=== PATIENT | female | born 1965 | race Two or more races ===

== ENCOUNTER 2021-07-13 10:25 | Outpatient (REF) | payer MEDICAID, SELFPAY ==
--- NOTE | ~2021-07-13 | XR_ITS ---
EXAMINATION: XR CERVICAL SPINE CLINICAL INFORMATION: Paresthesia. COMPARISON: None TECHNIQUE: 6 views of the cervical spine, inclusive of flexion and extension views, were obtained. FINDINGS: No abnormal prevertebral soft tissue swelling is seen. There is loss of normal cervical spine lordosis. There is approximately 2 mm of anterior subluxation of C3 on C4. There is narrowing of the disc spaces C4 through C7 with marginal spurring present. No acute fracture is identified. There is spurring of the joints of Luschka seen to cause anterior neural foraminal encroachment at the C5-C6 and C6-C7 levels bilaterally as well as at the C4-C5 level on the left. XR/XR cervical spine 5V IMPRESSION: Cervical spondylosis most significant at C4 through C7 as described. Most significant neural foraminal encroachment is seen on the right at the C5-C6 and C6-C7 levels and on the left at the C4-C5 level.
== END 2021-07-13 10:26 | disposition home or self-care (01) ==
LOC: HO.XRAY 10:25
PROVIDERS: PCP Registered Nurse; Visit Provider Registered Nurse
DX: R20.2 Paresthesia of skin (principal)
CPT/HCPCS: 72050

== ENCOUNTER 2021-08-25 15:04 | Outpatient (REF) | payer MEDICAID, SELFPAY ==
--- NOTE | ~2021-08-25 | CT_ITS ---
EXAMINATION: CT HEAD WITHOUT CONTRAST CLINICAL INFORMATION: Stroke. COMPARISON: None available. TECHNIQUE: Contiguous axial imaging was performed from the skull base to vertex without intravenous administration of contrast. This CT examination was performed using dose optimization techniques as appropriate, variously including the following: *Automated exposure control. *Adjustment of mA and/or kV according to patient size (this includes techniques or standardized protocols for targeted exams where dose is matched to indication/reason for exam; i.e. extremities or head). *Use of iterative reconstruction technique. DLP: 811 mGy-cm FINDINGS: There is no evidence of acute intracranial hemorrhage or edematous territorial infarction. There is no abnormal attenuation within the brain parenchyma. Mckeon-white matter differentiation is preserved. Proportional prominence of the ventricles and sulcal spaces. No evidence for obstructive hydrocephalus. No abnormal mass effect or midline shift. No extra-axial fluid collections. Calcific atherosclerotic disease of the intracranial internal carotid arteries. No hyperdense vessel sign. No acute soft tissue or osseous abnormalities. Mild mucosal thickening of the paranasal sinuses. Moderate rightward nasal septal deviation with spurring. The mastoid air cells and middle ear cavities are clear. Mild degenerative arthropathy of the temporal mandibular joints. CT/CT head/brain wo con IMPRESSION: No evidence of acute intracranial hemorrhage or edematous territorial infarction.
== END 2021-08-25 15:05 | disposition home or self-care (01) ==
LOC: HO.CT 15:04
PROVIDERS: PCP Registered Nurse; Visit Provider Registered Nurse
DX: Z86.73 Personal history of transient ischemic attack (TIA), and cerebral infarction without residual deficits (principal)
CPT/HCPCS: 70450

== ENCOUNTER 2023-03-08 11:50 | Outpatient (REF) | payer MEDICAID, SELFPAY ==
[2023-03-08 14:25] LABS: Alanine Aminotransferase 33 U/L (0-31); Albumin Level 4.1 g/dL (3.5-5.0); Alkaline Phosphatase 83 U/L (39-117); Anion Gap 15 (12-20); Aspartate Amino Transferase 22 U/L (5-31); Bilirubin Total 0.3 mg/dL (0.0-1.0); Blood Urea Nitrogen 14 mg/dL (9-16); Calcium 9.5 mg/dL (8.4-10.2); Carbon Dioxide 23 mmol/L (22-29); Chloride 105 mmol/L (96-108); Cholesterol 209 mg/dL (<200); Estimated Glomerular Filt Rate > 60; Glucose Random 141 mg/dL (60-115); HDL Cholesterol 47 mg/dL (>40); LDL Cholesterol Calculated 133 mg/dL (<100); Potassium 4.1 mmol/L (3.3-5.1); Sodium 139 mmol/L (135-145); Total Protein 7.6 g/dL (6.5-8.0); Triglycerides 147 mg/dL (<150)
[2023-03-08 14:28] LABS: TSH reflex Free T4 2.23 uIU/mL (0.32-4.0)
== END 2023-03-08 11:51 | disposition home or self-care (01) ==
LOC: HO.HHCL 11:50
PROVIDERS: Visit Provider Registered Nurse
DX: E03.9 Hypothyroidism, unspecified (principal); R73.03 Prediabetes
CPT/HCPCS: 36415; 80053; 80061; 84443

== ENCOUNTER 2023-08-11 12:47 | Outpatient (REF) | payer MEDICAID, SELFPAY ==
[2023-08-11 14:21] LABS: MANUAL DIFF FLAG NO
[2023-08-11 14:25] LABS: Basophils Percent Auto 0.1 % (0-2); Eosinophils Absolute Auto 0.1 X10*3/uL (0.0-0.4); Eosinophils Percent Auto 0.6 % (0-4); Hematocrit 38.6 % (37.0-47.0); Hemoglobin 12.9 g/dl (12.0-16.0); Imm Gran Abs Auto 0.02 X10*3/uL (0.00-0.03); Imm Gran Pct Auto 0.2 % (0.0-0.4); Lymphocytes Absolute Auto 2.9 X10*3/uL (1.2-4.9); Lymphocytes Percent Auto 35.7 % (20-40); Mean Corpuscular HGB Conc 33.4 g/dl (31.0-35.0); Mean Corpuscular Hemoglobin 28.9 pg (27.0-33.0); Mean Corpuscular Volume 86.5 fL (80.0-98.0); Mean Platelet Volume 9.4 fL (9.4-12.3); Monocytes Absolute Auto 0.5 X10*3/uL (0.1-1.2); Monocytes Percent Auto 6.6 % (2-11); Neutrophils Absolute Auto 4.6 x10*3/uL (2.0-8.3); Neutrophils Percent Auto 56.8 % (45-73); Platelet Count 266 X10*3/uL (160-400); Red Blood Count 4.46 X10*6/uL (4.20-5.50); Red Cell Distribution Width 12.7 % (11.0-16.0); White Blood Count 8.2 X10*3/uL (4.8-10.8)
[2023-08-11 14:38] LABS: Estimated Average Glucose 120 mg/dL; Hemoglobin A1c % 5.8 % (<6.0)
[2023-08-11 14:57] LABS: Alanine Aminotransferase 40 U/L (0-31); Alkaline Phosphatase 80 U/L (39-117); Anion Gap 16 (12-20); Aspartate Amino Transferase 29 U/L (5-31); Bilirubin Direct 0.2 mg/dL (0.0-0.5); Bilirubin Total 0.6 mg/dL (0.0-1.0); Blood Urea Nitrogen 8 mg/dL (9-16); Calcium 8.7 mg/dL (8.4-10.2); Carbon Dioxide 24 mmol/L (22-29); Chloride 106 mmol/L (96-108); Cholesterol 216 mg/dL (<200); Estimated Glomerular Filt Rate > 60; Glucose Random 93 mg/dL (60-115); HDL Cholesterol 48 mg/dL (>40); LDL Cholesterol Calculated 147 mg/dL (<100); Potassium 3.8 mmol/L (3.3-5.1); Sodium 142 mmol/L (135-145); Total Protein 7.2 g/dL (6.5-8.0); Triglycerides 106 mg/dL (<150)
[2023-08-11 15:00] LABS: HIV AB/AG Nonreactive (Nonreactive); HIV Num 1 0.05 S/CO (0.00-0.99); TSH reflex Free T4 5.38 uIU/mL (0.32-4.0); Vitamin D 25-OH Total 51.4 ng/mL (>30)
[2023-08-11 15:13] LABS: Folate 9.6 ng/mL (> or = 4.0); Vitamin B12 471 pg/mL (200-900)
[2023-08-11 15:37] LABS: Free T4 (Free Thyroxine) 1.03 ng/dL (0.71-1.85)
[2023-08-14 16:24] LABS: RPR Rapid Plasma Reagin NON-REACTIVE (NON-REACTIVE)
== END 2023-08-11 12:48 | disposition home or self-care (01) ==
LOC: HO.CHCLDS 12:47
PROVIDERS: Visit Provider Registered Nurse
DX: Z00.00 Encounter for general adult medical examination without abnormal findings (principal); R41.3 Other amnesia; R10.13 Epigastric pain
CPT/HCPCS: 80048; 80061; 80076; 82306; 82607; 82746; 83036; 84439; 84443; 85025; 86592; 87338; 87389

== ENCOUNTER 2024-01-26 14:52 | Outpatient (REF) | payer MEDICAID, SELFPAY ==
[2024-01-26 17:25] LABS: MANUAL DIFF FLAG NO
[2024-01-26 17:45] LABS: Basophils Percent Auto 0.4 % (0-2); Eosinophils Absolute Auto 0.1 X10*3/uL (0.0-0.4); Hematocrit 38.2 % (37.0-47.0); Hemoglobin 13.5 g/dl (12.0-16.0); Imm Gran Abs Auto 0.03 X10*3/uL (0.00-0.03); Imm Gran Pct Auto 0.4 % (0.0-0.4); Lymphocytes Absolute Auto 2.3 X10*3/uL (1.2-4.9); Lymphocytes Percent Auto 32.4 % (20-40); Mean Corpuscular HGB Conc 35.3 g/dl (31.0-35.0); Mean Corpuscular Hemoglobin 30.8 pg (27.0-33.0); Mean Platelet Volume 9.1 fL (9.4-12.3); Monocytes Absolute Auto 0.6 X10*3/uL (0.1-1.2); Monocytes Percent Auto 8.1 % (2-11); Neutrophils Absolute Auto 4.1 x10*3/uL (2.0-8.3); Neutrophils Percent Auto 57.7 % (45-73); Platelet Count 201 X10*3/uL (160-400); Red Blood Count 4.39 X10*6/uL (4.20-5.50); Red Cell Distribution Width 13.1 % (11.0-16.0); White Blood Count 7.1 X10*3/uL (4.8-10.8)
[2024-01-26 17:51] LABS: Anion Gap 14 (12-20); Blood Urea Nitrogen 10 mg/dL (9-16); Calcium 9.2 mg/dL (8.4-10.2); Carbon Dioxide 24 mmol/L (22-29); Chloride 109 mmol/L (96-108); Estimated Glomerular Filt Rate > 60; Glucose Random 105 mg/dL (60-115); Sodium 143 mmol/L (135-145)
[2024-01-26 19:00] LABS: Free T4 (Free Thyroxine) 0.93 ng/dL (0.71-1.85)
== END 2024-01-26 14:53 | disposition home or self-care (01) ==
LOC: HO.CHCLDS 14:52
PROVIDERS: Visit Provider Registered Nurse
DX: E03.9 Hypothyroidism, unspecified (principal); J18.9 Pneumonia, unspecified organism
CPT/HCPCS: 36415; 80048; 84439; 84443; 85025

== ENCOUNTER 2024-02-16 13:18 | Outpatient (REF) | payer MEDICAID, SELFPAY ==
[2024-02-16 14:54] LABS: Alanine Aminotransferase 65 U/L (0-31); Albumin Level 4.2 g/dL (3.5-5.0); Alkaline Phosphatase 87 U/L (39-117); Aspartate Amino Transferase 38 U/L (5-31); Bilirubin Direct 0.1 mg/dL (0.0-0.5); Bilirubin Total 0.4 mg/dL (0.0-1.0); Total Protein 7.3 g/dL (6.5-8.0)
[2024-02-16 15:02] LABS: TSH reflex Free T4 7.26 uIU/mL (0.32-4.0)
[2024-02-16 18:02] LABS: Free T4 (Free Thyroxine) 0.91 ng/dL (0.71-1.85)
== END 2024-02-16 13:19 | disposition home or self-care (01) ==
LOC: HO.CHCLDS 13:18
PROVIDERS: Visit Provider Registered Nurse
DX: R74.8 Abnormal levels of other serum enzymes (principal); E03.8 Other specified hypothyroidism
CPT/HCPCS: 36415; 80076; 84439; 84443

== ENCOUNTER 2024-12-05 13:26 | Outpatient (REF) | payer MEDICAID, SELFPAY ==
--- OUTSIDE RECORDS SUMMARY | 2024-05-22 06:40 | XMS_ITS ---
Author Organization [facility] Address [address] [place] [phone] Care Team Providers Care Electric Locomotive Crane Operator Name Role Phone DAMIAN WILLOUGHBY MD Primary Care Provider Unavaila Cecil Chapman Jr [phone] REASON FOR VISIT Patient presents today for GERD Encounters Encounter Location Date Provider Diagnosis [facility] [address] [place] [address] [place] [phone] 05/22/2024 Cecil Stahl Jr Plan Of Treatment Next Appt Details Provider Name:Cecil benavidez Jr, 12/09/2024 09:40:00 AM, [address] [facility], [address], [place], [address], Progress Notes * NIXON SILVADOB:1965 (59 yo F)Acc No.[id number]:05/22/2024 Progress Notes Patient: NIXON FREDERICK Provider: Julio Stahl MD :1965 A ge:58 Y S ex:Female Date:05/22/2024 Address:[address] [place], [place] [id number] Pcp:DAMIAN WILLOUGHBY MD Subjective: * Chief Complaints: * 1 . Patient presents today for GERD. * Medical History: Objective: * Vitals: Assessment: Plan: * Treatment: * * The named appointment provid er may or may not be the originator of this progress note, and it is not deemed complete until electronically signed by the appointment provider. Sign off status: Pending * Provider: Julio Stahl MD Date: 0 05/22/2024 Generated for Randalli timmy/Faxing/eTransmitting on: 1 05:00 PM EDT
--- OUTSIDE RECORDS SUMMARY | 2024-08-15 09:55 | XMS_ITS ---
Author Organization [facility] Address [address] [place] [phone] Care Team Providers Care Sales And Catering Coordinator Name Role Phone DAMIAN WILLOUGHBY MD Primary Care Provider Unavaila Cecil Chapman Jr REASON FOR VISIT Patient presents today for GERD Encounters Encounter Location Date Provider Diagnosis [facility] [address] [place] [address] [place] [phone] 08/15/2024 Cecil Stahl Jr Plan Of Treatment Next Appt Details Provider Name:Cecil benavidez Jr, 12/09/2024 09:40:00 AM, [address] [facility], [address], [place], [address], Progress Notes * NIXON SILVADOB:1965 (59 yo F)Acc No.[id number]:08/15/2024 Progress Notes Patient: NIXON FREDERICK Provider: Julio Stahl MD :1965 A ge:58 Y S ex:Female Date:08/15/2024 Address:[address] [place], [place] [phone] Pcp:DAMIAN WILLOUGHBY MD Subjective: * Chief Complaints: [...] * Provider: Julio Stahl MD Date: 0 08/15/2024 Generated for Randalli timmy/Faxing/eTransmitting on: 1 05:01 PM EDT
[2024-12-05 14:24] LABS: Appearance Urine Clear; Glucose Urine UA Negative (Negative); PH 5.0 (5.0-9.0); Specific Gravity - Urine 1.025 (1.005-1.025); UMIC TRIGGER UACC YES
[2024-12-05 14:39] LABS: Microalbum/Creatinine Ratio Ur 44.3 ug/mg cr (<30)
[2024-12-05 15:04] LABS: Alanine Aminotransferase 40 U/L (0-31); Albumin Level 4.2 g/dL (3.5-5.0); Alkaline Phosphatase 96 U/L (39-117); Anion Gap 14 (12-20); Aspartate Amino Transferase 31 U/L (5-31); Blood Urea Nitrogen 11 mg/dL (9-16); Calcium 8.8 mg/dL (8.4-10.2); Carbon Dioxide 21 mmol/L (22-29); Chloride 111 mmol/L (96-108); Cholesterol 214 mg/dL (<200); Estimated Glomerular Filt Rate > 60; HDL Cholesterol 52 mg/dL (>40); Potassium 3.8 mmol/L (3.3-5.1); Sodium 142 mmol/L (135-145); Total Protein 7.0 g/dL (6.5-8.0); Triglycerides 143 mg/dL (<150)
--- OUTSIDE RECORDS SUMMARY | 2024-12-05 17:00 | XMS_ITS | Encounter Summary ---
Author Organization [employer] Address [address] [place] [address] Care Team Providers Care Returner Name Role Phone Lo Davis Primary Care Provider Chance Navarro Unavailable [phone] Viki Lama MD Unavailable [phone] Chance Navarro Unavailable [phone] Avelino Desai RN Unavailable [phone] Korina Cohen Unavailable Reason for Visit * Reason Onset Date Comments Med Refill 11/28/2022 Encounter Details Date Type Department Care Team (Late st Contact Info) Description 11/28/2022 Telephone [facility] [address] [place] [address] Lo Davis FNP [address] [place], [place] [phone] Med Refill Social History Tobacco Use Types Packs/Day Years Used Date Smoking Tobacco: Never Passive Smoke Exposure: Never Smokeless Tobacco: Never Alcohol Use Standard Drinks/Week Comments Never 0 (1 standard drink = 0.6 oz pur e alcohol) Depression Answer Date Recorded Patient Health Questionnaire-9 Score 16 07/21/2022 Housing Stability Answer Date Recorded What is your housing situation today? I have blaire mauro 11/28/[address] you li ve. Do you have problems with any of the following? None of the above 11/28/2022 Food Insecurity Answer Date Recorded Within the past 12 months, y ou worried that your food would run out before you got money to buy more: Never True 11/28/2022 Within the past 12 months,th e food you bought just didn't last and you didn't have enough money to get more: Never True Transportation Answer Date Recorded In the past 12 months, has l ack of transportation kept you from medical appts, meetings, work or from getting things needed for daily living? No 11/28/2022 Utilities Answer Date Recorded In the past 12 months, has t he electric, gas, oil or water company threatened to shut off services in your home? No 11/28/2022 Depression Answer Date Recorded Patient Health Questionnaire-2 Score 3 07/21/2022 Comments Unknown Sex and Gender Information Value Date Recorded Sex Assigned at Female 12/13/2021 10:25 AM EDT Legal Sex Female 10:25 AM EDT Gender Identity Female 12/13/2021 10:25 AM EDT Sexual Orientation Straight 08/08/2023 12 :26 PM EDT documented as of this encounter Miscellaneous Notes * Telephone Encounter - Araseli Desai - 11/28/2022 2:32 PM EDT Tc from daughter requesting medication refill on ibuprofen 600 MG tablet and lidocaine (Lidoderm) 5% patch documented in this encounter Plan of Treatment Upcoming Encounters Date Type Department Care Team (Late st Contact Info) Description 12/30/2024 11:15 AM EST Office Visit [facility] MED [facility] PED[facility] [address] [place] [address] Lo Davis FNP [address] [place] [address] documented as of this encounter Visit Diagnoses Not on filedocumented in this encounter Additional Health Concerns Assessment Noted Time PHQ-9 Depression Total Score: 16 023 9:26 AM EDT documented as of this encounter Care Teams Returner Relationship Specialty Start Date End Date Lo Davis FNP [address] [place] [address] PCP - General Family Medicine 04/29/21 Chance Navarro PA [address] [phone] Urology 01/08/24 Viki Lama MD [address] [place] [address] Neurology 01/08/24 Chance Navarro PA [address] [phone] Urology 02/04/24 Avelino Desai RN [address] [place] [address] Registered Nurse Family Medicine 09/26/24 10/10/24 Korina Cohen 09/26/24 10/10/24 [facility] 02/27/24 documented as of this encounter
--- OUTSIDE RECORDS SUMMARY | 2024-12-05 17:00 | XMS_ITS | Encounter Summary ---
Author Organization [employer] Address [address] [facility] 7t [place] [address] Care Team Providers Care Anthropological Linguist Name Role Phone Lo Davis Primary Care Provider [phone] Chance Navarro Unavailable [phone] Viki Lama MD Unavailable Chance Navarro Unavailable [phone] Avelino Desai RN Unavailable [phone] Korina Cohen Unavailable Encounter Details Date Type Department Care Team (Late st Contact Info) Description 08/16/2023 Orders Only [facility] [address] [place], [place] [phone] Lo Davis FNP [address] [place], [place] [phone] H. pylori infection (Primary Dx) Social History Tobacco Use Types Packs/Day Years [...] Patient Health Questionnaire-2 Score 3 07/21/2022 Comments No Sex and Gender Information Value Date Recorded Sex Assigned at Female 12/13/2021 10:25 AM EDT Legal Sex Female 10:25 AM EDT Gender Identity Female 12/13/2021 10:25 AM EDT Sexual Orientation Straight 08/08/2023 12 :26 PM EDT documented as of this encounter Plan of Treatment Upcoming Encounters Date Type Department Care Team (Late st Contact Info) Description 12/30/2024 11:15 AM EST Office Visit [facility] MED [facility] [address] [place] [address] Lo Davis FNP [address] [place] [address] Scheduled Orders Name Type Priority Associated Diagnoses Orde r Schedule Helicobacter pylori, Urea Breath Test Lab Routine H. pylori infection Expected: 08/16/2023 (Approximate), Expires: 08/15/2024 documented as of this encounter Visit Diagnoses Diagnosis H. pylori infection- Primary Helicobacter pylori (H. pylori) documented in this encounter Additional Health Concerns Assessment Noted Time PHQ-9 Depression Total Score: 16 023 9:26 AM EDT documented as of this encounter Care Teams Anthropological Linguist Relationship Specialty Start Date End Date Lo Davis FNP [address] [place] [address] PCP - General Family Medicine 04/29/21 Chance Navarro PA 100 [facility] Mar[place] [address] [phone] Urology 01/08/24 Viki Lama MD [address] [place] [address] Dr [address] [place] [address] Neurology 01/08/24 Chance Navarro PA 100 Serjio Rosario [address] [phone] Urology 02/04/24 Avelino Desai RN [address] [place] [address] Registered Nurse Family Medicine 09/26/24 10/10/24 Korina Cohen 09/26/24 10/10/24 [facility] 02/27/24 documented as of this encounter
--- OUTSIDE RECORDS SUMMARY | 2024-12-05 17:00 | XMS_ITS | Encounter Summary ---
Author Organization [employer] Address [address] [place] [address] [address] [place] [address] Care Team Providers Care Loom Setter Fourdrinier Name Role Phone Lo Davis Primary Care Provider Chance Navarro Unavailable [phone] Viki Lama MD Unavailable Chance Navarro Unavailable [phone] Avelino Desai RN Unavailable [phone] Korina Cohen Unavailable Encounter Details Date Type Department Care Team ([facility] st Contact Info) Description 12/23/2022 [facility] Information Management [address] [place] [address] Lo Davis FNP [address] [place] [phone] Social History Tobacco Use Types Packs/Day Years [...] Description 12/30/2024 11:15 AM EST Office Visit [facility] MED [facility] PEDS [address] [place] [address] Lo Davis FNP [address] [place] [address] documented as of this encounter Visit Diagnoses Not on filedocumented in this encounter Additional Health Concerns Assessment Noted Time PHQ-9 Depression Total Score: 16 023 9:26 AM EDT documented as of this encounter Care Teams Loom Setter Fourdrinier Relationship Specialty Start Date End Date Lo Davis FNP [address] [place] [address] PCP - General Family Medicine 04/29/21 Chance Navarro PA 100 [facility] [address] [place] [address] Urology 01/08/24 Viki Lama MD [address] [place] [address] Dr Arellano [address] [place] [address] Neurology 01/08/24 Chance Navarro PA 100 [facility] [address] [place] [address] Urology 02/04/24 Avelino Desai RN [address] [place] [address] Registered Nurse Family Medicine 09/26/24 10/10/24 Korina Cohen 09/26/24 10/10/24 [facility] 02/27/24 documented as of this encounter
--- OUTSIDE RECORDS SUMMARY | 2024-12-05 17:00 | XMS_ITS | Clinical Summary ---
Author Organization [facility] Address [address] [place] [address] Care Team Providers Care Inspector Weights And Measures Name Role Phone Unavailable Primary Care Provider Unavailabl e Source Comments PLEASE NOTE, if this patient is a minor, it may be UNLAWFUL to discuss sensitive information that is contained in these records (such as FAMILY PLANNING, MENTAL HEALTH or SUBSTANCE ABUSE) with the minor patient's parent or other person without the patient's specific authorization.[facility] Allergies No known active allergies Medications arm brace (WRIST BRACE)Indications: CTS (carpal tunnel syndrome) once daily. Please use brace both the hands during day time. 2 Each 2 12/21/19 13 Active caneIndications:Bi lateral low back pain without sciatica Dx: LBP, morbid obesity, knee arthritis 1 Device 0 09/06/19 15 Active magnesium oxide (MAG-OX) 400 mg tabletIndications: Hypomagnesemia Take 1 Tab by mouth once daily with dinner. Take with food. 90 Tab 3 11/09/19 15 Active diaper (DIAPERS)Indicatio ns:Urinary incontinence in female Adult diapers. Use tid. Dx: R32 90 Each 11 01/21/20 15 Active diaperIndications: Urinary incontinence in female,Morbid obesity due to excess calories Dx: urinary incontinence in female (R32). Size large Use 3-4 times per day. 100 Each 11 03/18/19 16 Active traZODone (DESYREL) 100 mg tabletIndications: Insomnia secondary to depression with anxiety Take 1 Tab by mouth nightly at bedtime. PER PSYCH. 11/03/19 16 Active ferrous sulfate 325 mg (65 mg iron) tabletIndications: Dietary iron deficiency Take 1 Tab by mouth once daily with breakfast. 90 Tab 1 11/03/19 16 Active COMPR.STOCKING,KNE E,REG,X-LRG (COMPRESSION STOCKING)Indicatio ns:Lymphedema of both lower extremities Use daily. 2 pairs. Dx: I82.9 2 Each 0 12/03/19 16 Active blood pressure monitorIndications :Lymphedema of both lower extremities,Elevat ed blood pressure Dx: morbid obesity, diet controlled htn 1 Kit 0 12/03/19 16 Active witch marissa (RACHEL CARRANZA,) 50 %Indications:Hemor rhoids, external, thrombosed Use after each bm and prn. 40 Each 6 07/28/19 18 Active miscellaneous medical supply miscIndications:Ur ge incontinence of urine,Mobility poor by miscellaneous route as needed (prn for incontinence) Urine incontinence pads. Dx: N39.41, Z74.09. Length: lifetime 1 Each 11 02/15/19 19 Active miscellaneous medical supply miscIndications:Ur ge incontinence of urine,Mobility poor by miscellaneous route as needed (prn for incontinence) Diapers (size large). Dx: N39.41, Z74.09. Length: lifetime 1 Each 11 02/15/19 19 Active VOLTAREN 1 % gelIndications:Art hritis of both knees Apply 4 g each knee bid. 100 g 3 05/22/19 19 Active methocarbamol (ROBAXIN) 750 mg tabletIndications: Acute right-sided thoracic back pain Take 1 Tab by mouth 2 (two) times daily 8 Tab 08/21/19 19 Active albuterol sulfate 90 mcg/actuation inhalerIndications :Mild persistent asthma without complication Inhale 2 Puffs into the lungs every 4 (four) hours as needed for shortness of breath 8 g 5 06/07/19 20 Active baclofen (LIORESAL) 10 mg tabletIndications: Chronic bilateral low back pain without sciatica Take 1 Tab by mouth every 8 (eight) hours as needed for muscle spasms 30 Tab 2 06/07/19 20 Active miscellaneous medical supply miscIndications:Ar thritis of both knees,Chronic pain of both knees Order Bilateral knee brace. Use daily. 1 pair. Dx:M17.0, M25.561. Need lifetime 2 Each 1 10/14/19 20 Active miscellaneous medical supply miscIndications:Ar thritis of both knees,Unsteady gait Order Rolator Walker with seat. Use daily. Dx: M17.0, R26.81. Need lifetime. 1 Each 1 11/10/19 20 Active biotin 5 mg tabIndications:Fem gabe pattern hair loss Take 5 mg by mouth once daily For hair 90 Tab 2 11/13/19 20 Active montelukast (SINGULAIR) 10 mg tabletIndications: Mild persistent asthma without complication TAKE 1 TABLET BY MOUTH EVERY NIGHT AT BEDTIME 90 Tab 1 12/23/19 20 Active oxybutynin chloride (DITROPAN-XL) 10 mg 24 hr tabletIndications: OAB (overactive bladder) TAKE 1 TABLET BY MOUTH EVERY MORNING FOR BLADDER 30 Tablet 2 02/15/19 21 Active omeprazole (PRILOSEC) [address] capsule TAKE 1 CAPSULE BY MOUTH EVERY MORNING BEFORE BREAKFAST. DO NOT CRUSH OR CHEW 90 Capsule 1 03/02/19 21 Active albuterol sulfate (PROVENTIL) 2.5 mg /3 mL (0.083 %) nebulizer solutionIndication s:Mild persistent asthma without complication Take 3 mL by nebulization every 6 (six) hours as needed for wheezing or shortness of breath 75 mL 2 03/16/19 21 Active WIXELA INHUB 250-50 mcg/dose diskus inhaler INHALE 1 PUFF INTO THE LUNGS TWICE DAILY. RINSE MOUTH AFTER USE 180 Each 5 04/02/19 21 Active gabapentin (NEURONTIN) 300 mg capsuleIndications :Chronic bilateral low back pain without sciatica Take 1 Capsule by mouth 2 (two) times daily For pain 180 Capsule 1 06/23/19 21 Active hydrocortisone (ANUSOL-HC) 2.5 % topical creamIndications:H emorrhoids, unspecified hemorrhoid type Place rectally 2 (two) times daily For hemmorhoids 60 g 5 06/23/19 21 Active levothyroxine 137 mcg tabletIndications: Hypothyroidism, unspecified type Take 1 Tablet by mouth every morning For thyroid 90 Tablet 3 06/23/19 21 Active cholecalciferol, vitamin D3, 50 mcg (2,000 unit) capsuleIndications :Vitamin D deficiency Take 2 Capsules by mouth once daily 180 Capsule 3 06/23/19 21 Active nystatin (MYCOSTATIN) 100,000 unit/gram powderIndications: Candidiasis Apply topically 4 (four) times daily To stomach fold 60 g 2 06/23/19 21 Active mupirocin calcium (BACTROBAN) 2 % creamIndications:S jacquie tag, acquired Apply topically 3 (three) times daily At rt arm pit 30 g 2 06/23/19 21 Active miscellaneous medical supply miscIndications:Mi ld persistent asthma without complication Order Nebulizer machine, supplies with adult mask. Use daily prn. Dx:J45.30. Need: lifetime 1 Each 1 07/23/19 21 Active acetaminophen (TYLENOL) 500 mg tabletIndications: Left arm pain Take 2 Tablets by mouth every 8 (eight) hours as needed for pain Max 6 tabs per day 60 Tablet 2 10/30/19 21 Active diclofenac sodium (VOLTAREN) [address] tabletIndications: Primary osteoarthritis of both knees Take 1 and 1/2 tab by mouth twice a day as needed for pain 90 Tablet 2 10/30/19 21 Active clotrimazole-betam ethasone (LOTRISONE) 1-0.05 % creamIndications:C andidiasis Apply topically 2 (two) times daily To stomach fold 30 g 2 10/30/19 21 Active Active Problems Problem Noted Date Diagnosed Date OAB (overactive bladder) 11/10/2019 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 Face w: heterogeneous enhancement of the left parotid gland with stranding and tiny intraparenchymal enhancing lesions. Findings suggestive of parotitis likely infectious or inflammatory in etiology. Recommend clinical correlation. Mildly enlarged bilateral cervical LAD likely reactive. lymphoma not entirely excluded. Recommend f/u to complete resolution and correlate clinically. elastic attacher zigzag consulted who recommend outpt tx with dicloxacillin QID x 10 days and outpt f/u with maxillofacial surgeon. Call Dr. Alegria's office [place]. Closed fracture of right wrist 02/2018 9 H/O mammogram 10/20/2017 Overview (10/20/2017): Mammo 10/18/17 at [facility] 2 Right kidney stone 01/03/2017 Overview (12/01/2017): CT 12/02/16 at [facility] = 1.1 mm right kidney stone Seen 01/23/17 by [facility]. Advised to increase fluids, that flank pain is not caused by kidney stones. Cubital tunnel syndrome on right 06/08/2016 Overview (06/08/2016): F/u [facility], EMG ordered 06/02/16 via [facility] Arthritis of hand, left 06/08/2016 Overview (06/08/2016): Carpal arthritis per [facility] Insomnia secondary to depression with anxiety Overview (11/03/2015): Psych f/u Dr. Bishop Tinea corporis, intertrigo abdominal fold 2015 Urinary incontinence in female 01/20/2015 Overview (04/14/2018): 03/15/18 - [facility]: Plan to do UDA, will F/U with Dr. Dong after. Lymphedema of both lower extremities 01/20/2015 Fatty infiltration of liver 01/20/2015 Prediabetes 11/08/2014 Hypomagnesemia 11/08/2014 Elevated liver function tests due to fatty liver 11/08/2014 Dietary iron deficiency 11/08/2014 Bilateral low back pain without sciatica 015 Lower leg edema 08/04/2014 Vitamin D deficiency 08/04/2014 Arthritis of both knees 07/30/2014 Overview (05/24/2015): F/u Rheum at [facility]. X-rays both knee's = mild medial compartment joint space narrowing. Morbid obesity 07/30/2014 Chronic leg pain 10/07/2013 Hemorrhoids, external, thrombosed 07/01/2013 Contact dermatitis and eczema 11/20/2012 Mild persistent asthma 11/20/2012 Hypothyroidism 11/06/2012 Carpal tunnel syndrome, bilateral Overview (05/06/2016): Seen via [facility] 09/15/14. S/p release right 09/2014 Dr. Patel Anxiety and depression Overview (01/20/2015): Psych f/u Dr. Bishop in the past. Immunizations Immunization Administration Dates Next Due Flu, Cell Culture based, Pre servative Free, 6m+, Flucelvax 11/29/2016 Flu, Preservative Free 10/29/2020,11/08/2019, INFLUENZA, SEASONAL, INJECTABLE 10/14/2016,11/02,01/22/2014 INFLUENZA, SEASONAL, INJECTA BLE, PRESERVATIVE FREE 11/03/2015,11/20/2012 PFIZER COVID VACCINE, PURPLE CAP, 12+ 06/30/2020 ,06/09/2020 PNEUMOCOCCAL POLYSACCHARIDE PPV23 (Pneumovax 23) 03/08/2019 PPD 08/26/2015 TDAP 07/16/2018 ZOSTER VACCINE, RECOMBINANT (SHINGRIX) 1,10/11/2019 Family History Medical History Relation Name Comments Heart Problems Brother 1 Hypertension Brother 1 Diabetes Brother 2 Hypertension Brother 2 Diabetes Brother 3 High Cholesterol Brother 3 Hypertension Brother 3 Diabetes Brother 4 Hypertension Brother 4 No Known Problems Daughter 1 No Known Problems Daughter 2 Diabetes Father Hypertension Father Kidney disease Father Hypertension Mother Hypertension Sister 1 Stroke Sister 1 High Cholesterol Sister 2 Stroke Sister 2 High Cholesterol Sister 3 Hypertension Sister 3 Stroke Sister 3 No Known Problems Son Cancer Neg Relation Name Status Comments Brother 1 Alive Brother 2 Alive Brother 3 Alive Brother 4 Alive Daughter 1 Alive Daughter 2 Alive Father Mother Sister 1 Alive Sister 2 Alive Sister 3 Alive Son Alive Social History Tobacco Use Types Packs/Day Years Used Date Smoking Tobacco: Never Smokeless Tobacco: Never Alcohol Use Standard Drinks/Week Comments No 0 (1 standard drink = 0.6 oz pur e alcohol) Social Connections Answer Date Recorded Social Connections and Isolation 0 10/04/2018 Financial Resource Strain Answer Date R ecorded Financial Resource Strain 0 2018 Stress Answer Date Recorded Stress 0 10/04/2018 Physical Activity Answer Date Recorded Physical Activity 0 10/04/2018 Food Insecurity Answer Date Recorded Food 0 10/04/2018 Transportation Needs Answer Date Record ed Transportation 0 10/04/2018 Housing Stability Answer Date Recorded Housing 0 10/04/2018 Safety and Environment Answer Date Bartolo rded Safety 0 10/04/2018 Utilities Answer Date Recorded Utilities 0 10/04/2018 Employment Answer Date Recorded Employment 0 10/04/2018 Comments No Sex and Gender Information Value Date Recorded Sex Assigned at Female 11/30/2016 10:33 AM PDT Legal Sex Female 11:36 AM PDT Gender Identity Female 11/30/2016 10:33 AM PDT Sexual Orientation Straight 11/30/2016 10 :33 AM PDT Last Filed Vital Signs Vital Sign Reading Time Taken Comments Blood Pressure 126/84 10/29/2020 1:51 PM EDT Pulse 87 10/29/2020 1:51 PM EDT Temperature 37.3 C (99.1 F) 10/29/2020 1:51 PM EDT Respiratory Rate 16 10/29/2020 1:51 PM EDT Oxygen Saturation 98% 10/29/2020 1:51 PM EDT Inhaled Oxygen Concentration - - Weight 83.2 kg (183 lb 6.4 oz) 10/29/2020 1:51 P M EDT Height 142 cm (4' 7.91 ) 10/29/2020 1:51 PM EDT Body Mass Index 41.25 10/29/2020 1:51 PM EDT Plan of Treatment Health Maintenance Due Date Last Done Comments Anxiety Screening 1966 HPV Screening (self-collect) 1966 HPV Screening 1966 Tobacco Screening 1966 Imm-Hepatitis B (1 of 3 - 19 + 3-dose series) 1985 CT Colonography 09/14/2011 Colonoscopy 09/14/2011 Colorectal Cancer Screening 09/14/2011 FIT/gFOBT 09/14/2011 Fecal DNA 09/14/2011 Flexible Sigmoidoscopy 09/14/2011 Imm-Pneumococcal 50+ (2 of 2 - PCV) 03/08/2020 03/08/2019 Diabetes Screening 03/16/2021 03/16/2020, 0 03/16/2020, 10/11/2019, Additional history exists TSH Monitoring 03/16/2021 03/16/2020, 09/14, 03/08/2019, Additional history exists Pap Smear 10/17/2021 10/17/2018, 02/21/2012 Annual Wellness (Adult): Indicated (All Coverage) 10/29/2021 10/29/2020, 10/11/2019, 10/12/2018, Additional history exists Hypertension Screening (#1) 10/29/2021 Cervical Cancer Screening 10/18/2023 Pap + HPV 10/18/2023 10/17/2018, 02/21/2012 Alcohol and Drug Screen 02/14/2024 07/21/19 21, 10/11/2019, 05/21/2018, Additional history exists Depression Annual Screen 02/14/2024 019, 09/25/2017, 08/09/2016 Breast Cancer Screening (Mammogram) 09/12/2024 2023, 10/18/2017, 05/24/2016 [id number] ( season) 2024 021, 06/09/2020 Imm-Influenza (#1) 2024 10/29/2020, 0 11/08/2019, 03/08/2019, Additional history exists Lipid Screening 03/16/2025 03/16/2020, 09/14, 03/08/2019, Additional history exists Imm-DTaP/Tdap/Td (2 - Td or Tdap) 07/16/2028 019 Hepatitis C Screening Completed 01/19/2015 HIV Screening Completed 07/16/2018 Imm-Zoster, Recombinant Completed 03/16/2020, 10/10 Cervical Ablation/Cold-Knife Conization Discontinued Cervical Cryotherapy Discontinued Colposcopy Discontinued Excision/Leep Discontinued HPV Genotyping Discontinued Vaginal Pap Discontinued Vulvoscopy Discontinued Procedures Procedure Name Priority Date/Time Associated Diagnosis Comments HISTORIC MAMMOGRAM 2023 3: 00 AM EDT THYROID CASCADE PROFILE Routine 03/16/2020 12:20 PM EST Encounter for laboratory test HEMOGLOBIN GLYCOSYLATED A1C Routine 03/16/2020 12:20 PM EST Encounter for laboratory test LIPID PANEL Routine 03/16/2020 12:20 PM EST Encounter for laboratory test PAP SMEAR W/HPV, ABSTRACTED Routine 10/17/2018 2:59 PM EDT ANTIBODY HIV-1&HIV-2 SINGLE RESULT Routine 07/16/2018 12:12 PM EDT Screening for human immunodeficiency virus HEPATITIS A,B,C PANEL Routine 01/19/2015 11:02 AM EST Elevated liver function tests from Last 3 Months or Most Recently Relevant to Health Maintenance Results * HISTORIC MAMMOGRAM (2023 3:00 AM EDT) 2023 3:00 AM EDT Carol Ann AGUIRREP IMG MAMMO Final Result * THYROID CASCADE PROFILE (03/16/2020 12:20 PM EST) TSH CASCADE 1.95 0.40 - 4.00 uIU/ml [facility] Blood Blood / Unknown 03/16/2020 1 2:20 PM EST 03/16/2020 4:14 PM EST Narrative [facility] - 03/16/2020 4:58 PM EST [facility], [place] [address] Odd Shoe Examiner - Jossy Cruz MD [place] [id number] ORD# [id number] Carol Ann Vogel [facility] - [place] [address], * HEMOGLOBIN, GLYCOSYLATED (A1C) (03/16/2020 12:20 PM EST) GLYCATED HEMOGLOBIN A1C 5.6 <6.5 % [facility] ESTIMATED AVERAGE GLUCOSE 114 mg/dL [facility] Blood Blood / Unknown 03/16/2020 1 2:20 PM EST 03/16/2020 4:14 PM EST Narrative [facility] - 03/17/2020 9:25 AM EST [employer], [place] [address] Odd Shoe Examiner - Jossy Cruz MD [place] ID [id number] ORD# [id number] Carol Ann Guvic [facility] - BLOOD DRAW Final Result [address] [address], [place] [phone] * (ABNORMAL) LIPID PANEL (03/16/2020 12:20 PM EST) CHOLESTEROL 255(H) 0 - 200 mg/dL [facility] TRIGLYCERIDES 131 0 - 150 mg/dL [facility] HDL CHOLESTEROL 51 >40 mg/dL [facility] LDL CALCULATED 178(H) 0 - 100 mg/dL [facility] TC-HDLC RATIO 5.0(H) 0 - 4.4 mg/dL [facility] Blood Blood / Unknown 03/16/2020 1 2:20 PM EST 03/16/2020 4:14 PM EST Narrative [facility] - 03/16/2020 4:50 PM EST [employer], [place] [address] Odd Shoe Examiner - Jossy Cruz MD [place] [id number] ORD# [id number] Carol Ann [facility] LAB - BLOOD DRAW Edited Result - Final [address] [address], [place] [phone] * PAP SMEAR W/HPV, ABSTRACTED (10/17/2018 2:59 PM EDT) PAP SMEAR INTERPRETATION NORMAL NORMAL [facility] HPV (HUMAN PAPILLOMA) NEGATIVE NEGATIVE [facility] HPV TYPE 16 NEGATIVE NEGATIVE [facility] HPV TYPE 18 NEGATIVE NEGATIVE [facility] Specimen from uterine cervix (specimen) Impressions [facility] - 10/17/2018 2:59 PM EDT ThinPrep Pap Negative for squamous intraepithelial lesion and malignancy HPV Negative Provider [facility] - PATHOLOGY AND CYTOLOGY AMB ULATORY Final Result Performing Organization Address [facility]/ZIP Co de Phone Number [place] [address], * HIV-1 & HIV-2 ANTIBODIES (07/16/2018 12:12 PM EDT) HIV 1 AND 2 ANTIBODY SCREEN NEGATIVE NEGATIVE [facility] Comment: This assay is a 4th generation assay allowing for earlier detection of HIV infection by detecting the presence of the HIV-1 p24 antigen as well as the traditional antibodies to HIV type 1 (including group O) and type 2. Use of a 4th generation assay is the current CDC recommendation for HIV screening. Blood specimen (specimen) Blood / Unknown 07/16/2018 12:12 PM EDT 07/16/2018 12:46 PM EDT Narrative [facility] - 07/16/2018 5:13 PM EDT [facility], a member of [address] [address] Odd Shoe Examiner - Daniela Mathew [place] [id number] ORD# [id number] Helen Rausch PA-C LAB - BLOOD DRAW Final Re sult Performing Organization Address City/[facility]/ZIP Co de Phone Number [address] [address], * (ABNORMAL) HEPATITIS A,B,C PANEL (01/19/2015 11:02 AM EST) HEPATITIS B SURFACE ANTIGEN NEGATIVE NEGATIVE [facility] HEPATITIS C VIRUS DIAGNOSTIC NEGATIVE NEGATIVE [facility] HEPATITIS A ANTIBODY TOTAL POSITIVE(A) NEGATIVE [facility] HEPATITIS B CORE ANTIBODY NEGATIVE NEGATIVE [facility] HEPATITIS B SURFACE ANTIBODY NEGATIVE NEGATIVE [facility] Comment: Hepatitis B surface antibody testing performed at reference lab due to reagent backorder. Reference range: Negative: Inconsistent with immunity, less than 10 mIU/mL Positive: Consistent with immunity, greater than 9.9 mIU/mL Testing performed at: [id number] [address] PHONE: Blood specimen (specimen) Blood / Unknown 01/19/2015 11:02 AM EST 01/19/2015 11:23 AM EST Narrative [facility] - 01/19/2015 2:51 PM [place] [id number] ORD# [id number] [facility] - BLOOD DRAW Edited Re felipet - Final [address] [address], from Last 3 Months or Most Recently Relevant to Health Maintenance Insurance [place] DENTAL [facility] [employer]AF[employer]
--- OUTSIDE RECORDS SUMMARY | 2024-12-05 17:01 | XMS_ITS | Clinical Summary ---
Author Organization [facility] Address [address] [place] [address] Phone Care Team Providers Care Laser Operator Name Role Phone Damian Willoughby RN Primary Care Provider Allergies Active Allergy Reactions Criticality Noted Date Comments Pork Derived (Porcine) High 09/25/2024 Pentecostalism Pork/Porcine Containing Products High Pentec[employer]alism Medications atorvastatin (LIPITOR) 20 mg tablet Take 1 tablet (20 mg total) by mouth at bedtime. 30 each 11 09/26/2024 6 Active amLODIPine (NORVASC) 5 mg tablet Take 1 tablet (5 mg total) by mouth 1 (one) time each day. 30 each 5 09/26/2024 6 Active Active Problems Problem Noted Date Diagnosed Date Closed compression fracture of thoracolumbar vertebra (CMS/[facility] V24, CMS/HCC V28) 09/25/2024 Fall 09/25/2024 Resolved Problems Problem Noted Date Diagnosed Date Resolved Date Vertigo 09/25/2024 09/26/2024 Stroke-like symptom 09/25/2024 09/27/19 25 Encounters Date Type Department Care Team Description 09/25/2024 9:32 AM EDT - 09/26/2024 1:27 PM EDT Hospital Encounter [facility] [address] [place] [address] Crispin Bergman MD Surendran, Anupama, MD Kela, Kashyap Devendrabhai, MD Vertigo (Primary Dx); Closed compression fracture of thoracolumbar vertebra, initial encounter (CMS/[facility] V24, CMS/[facility] V28); Fall, initial encounter; Stroke-like symptom Discharge Disposition: Home-Health Care [facility] from Last 3 Months Immunizations Immunization Administration Dates Next Due Pfizer SARS-CoV-2 COVID-19, mRNA, LNP-S, preservative free 06/30/2020,06/09/2020 Surgical History Surgery Date Site/Laterality Comments HAND SURGERY Bilateral SECTION x3 Medical History Medical History Date Comments Hypertension Asthma Osteoporosis Nephrolithiasis Family History Medical History Relation Name Comments Hypertension Brother Diabetes type II Father Diabetes type II Mother Heart attack Mother Relation Name Status Comments Brother Father Mother Social History Tobacco Use Types Packs/Day Years Used Date Smoking Tobacco: Never Smokeless Tobacco: Never Tobacco Cessation:Counseling Given: Not Answered Alcohol Use Standard Drinks/Week Comments Never 0 (1 standard drink = 0.6 oz pur e alcohol) Interpersonal Safety Answer Date Record ed Physical Abuse Unrecognized value 09/25/2024 Verbal Abuse Unrecognized value 09/25/2024 Comments No Sex and Gender Information Value Date Recorded Sex Assigned at Not on file Legal Sex Female 8:59 PM EST Gender Identity Not on file Sexual Orientation Not on file Obstetrics History Last Filed Vital Signs Vital Sign Reading Time Taken Comments Blood Pressure 153/94 09/26/2024 8:22 AM EDT Pulse 107 09/26/2024 9:20 AM EDT after gait Temperature 36.9 C (98.4 F) 09/26/2024 4:59 AM EDT Respiratory Rate 20 09/26/2024 4:59 AM EDT Oxygen Saturation 98% 09/26/2024 8:22 AM EDT Inhaled Oxygen Concentration - - Weight 74.8 kg (165 lb) 09/25/2024 9:47 AM EDT Height 139.7 cm (4' 7 ) 09/25/2024 9:47 AM EDT Body Mass Index 38.35 09/25/2024 9:47 AM EDT Plan of Treatment Health Maintenance Due Date Last Done Comments Colorectal Cancer Screening: Colonoscopy 1966 Hepatitis A Vaccines (1 of 2 - Risk 2-dose series) 1985 Hepatitis B Vaccines (1 of 3 - 19+ 3-dose series) 1985 Cervical Cancer Screening: Pap Smear 09/14/1987 RSV Immunization Adult Patients (1 - Risk 50-74 years 1-dose series) 2016 Hepatitis C Screening 01/15/2022 Social Influencers of Health Screening 01/15/2022 Depression Screening 02/14/2024 COVID-19 Vaccine ( - season) 2024 04/05/2021, 06/30/2020, 06/09/2020 Influenza Vaccine (#1) 2024 , 10/21/2021, 10/29/2020, Additional history exists Breast Cancer Screening 09/12/2025 09/13/19 24, 10/29/2018, 10/18/2017 Hypertension/CHF/CAD Annual BMP Blood Test 09/26/2025 09/26/2024, 09/25/2024 DTaP,Tdap,and Td Vaccines (2 - Td or Tdap) 07/16/2028 07/16/2018 Cholesterol Screening (Lipid Panel) 09/26/2029 09/26/2024, 08/11/2023, 03/16/2020, Additional history exists Zoster Vaccines Completed 03/16/2020, 10/11/2019 Pneumococcal Vaccine: 50+ Years Completed 07/21/2022, 03/08/2019 HIV Screening Completed 08/11/2023, 07/16/2018 HIB Vaccines Aged Out No longer eligi ble based on patient's age to complete this topic HPV Vaccines Aged Out No longer eligi ble based on patient's age to complete this topic IPV Vaccines Aged Out No longer eligi ble based on patient's age to complete this topic MMR Vaccines Aged Out No longer eligi ble based on patient's age to complete this topic Meningococcal ACWY Vaccine Aged Out N o longer eligible based on patient's age to complete this topic Meningococcal B Vaccine Aged Out No l onger eligible based on patient's age to complete this topic RSV Immunization Patients Under 20 months Aged Out No longer eligible based on patient's age to complete this topic Varicella Vaccines Aged Out No longer eligible based on patient's age to complete this topic Procedures Procedure Name Priority Date/Time Associated Diagnosis Comments CBC WITH AUTO DIFFERENTIAL Routine 09/26/2024 6:14 AM EDT LIPID PANEL WITH REFLEX TO DIRECT LDL Routine 09/26/2024 6:14 AM EDT BASIC METABOLIC PANEL Routine 09/26/2024 6:14 AM EDT CBC AND DIFFERENTIAL Routine 09/26/2024 6:14 AM EDT ECG ANNOTATED 09/26/2024 CT LUMBAR SPINE WO CONTRAST STAT 09/25/2024 5:[address] THORACIC SPINE WO CONTRAST STAT 09/25/2024 5:07 PM EDT XR KNEE 4+ VIEWS RIGHT STAT 5:00 PM EDT MR BRAIN WO CONTRAST STAT 09/25/2024 3:22 PM EDT MCKEON URINE CULTURE TUBE STAT 09/26/19 1:15 PM EDT URINALYSIS WITH REFLEX MICROSCOPIC AND CULTURE STAT 09/25/2024 1:15 PM EDT URINALYSIS WITH REFLEX MICROSCOPIC AND CULTURE STAT 09/25/2024 1:15 PM EDT CULTURE URINE STAT 09/25/2024 1:15 PM EDT ACTIVATED PARTIAL THROMBOPLASTIN TIME STAT 09/25/2024 11:46 AM EDT PROTHROMBIN TIME WITH INR STAT 09/25/2024 11:46 AM EDT TROPONIN I HIGH SENSITIVITY Timed 09/25/2024 11:[address] ANGIO HEAD/NECK STROKE WO AND/OR W CONTRAST STAT 09/25/2024 11:[address] HEAD STROKE WO CONTRAST STAT 09/25/2024 11:23 AM EDT XR CHEST 2 VIEWS STAT 09/25/2024 10:2 0 AM EDT ECG 12-LEAD STAT 09/25/2024 10:08 AM EDT HEMOGLOBIN A1C Add-On 09/25/2024 9:58 AM EDT CBC WITH AUTO DIFFERENTIAL STAT 09/25/2024 9:58 AM EDT TROPONIN I HIGH SENSITIVITY Timed 09/25/2024 9:58 AM EDT MAGNESIUM STAT 09/25/2024 9:58 AM EDT BASIC METABOLIC PANEL STAT 09/25/2024 9:58 AM EDT CBC AND DIFFERENTIAL STAT 09/25/2024 9:58 AM EDT POCT GLUCOSE BLOOD Routine 09/25/2024 9: 57 AM EDT MT CRITICAL CARE 30-74 MINUTES Routine 09/25/2024 9:25 AM EDT SARA SCREENING DIGITAL Routine 2023 1:00 PM EDT Encounter for screening mammogram for malignant neoplasm of breast from Last 3 Months or Most Recently Relevant to Health Maintenance Results * (ABNORMAL) Lipid panel with reflex to direct LDL (09/26/2024 6:14 AM EDT) Cholesterol 217(H) 0 - 200 mg/dL LAB CHEMISTRY METHOD 09/26/2024 7:28 AM EDT [facility] Triglycerides 111 0 - 150 mg/dL LAB CHEMISTRY METHOD 09/26/2024 7:28 AM EDT [facility] HDL 48 >=40 mg/dL LAB CHEMISTRY METHOD 09/26/2024 7:28 AM EDT [facility] LDL Calculated 147(H) 0 - 100 mg/dL LAB CHEMISTRY METHOD 09/26/2024 7:28 AM EDT [facility] Comment:Estimated LDL Calcul ated using equation: Total cholesterol - HDL cholesterol - (Triglycerides/5) VLDL Cholesterol Aristides 22.2 mg/dL LAB CHEMISTRY METHOD 09/26/2024 7:28 AM EDT [facility] Non HDL Chol. (LDL+VLDL) 169(H) <145 mg/dL LAB CHEMISTRY METHOD 09/26/2024 7:28 AM EDT [facility] Chol/HDL Ratio 4.5(H) 0.0 - 4.4 LAB CHEMISTRY METHOD 09/26/2024 7:28 AM EDT [facility] Blood Venous blood specimen / Unknown Venipuncture / Unknown 09/26/2024 6:14 AM EDT 09/26/2024 6:34 AM EDT us Kim VILCHIS LAB BLOOD ORDERABLES Final Re sult [facility] [address] [place] [address], [place] [phone] * CBC auto differential (09/26/2024 6:14 AM EDT) Only the most recent of2 resultswithin the time period is included. WBC 8.6 4.8 - 10.8 K/mcL LAB HEMETOLOGY METHOD 09/26/2024 7:00 AM EDT [facility] RBC 4.10 3.80 - 4.80 M/mcL LAB HEMETOLOGY METHOD 09/26/2024 7:00 AM EDT [facility] Hemoglobin 11.8 11.5 - 16.0 g/dL LAB HEMETOLOGY METHOD 09/26/2024 7:00 AM EDT [facility] Hematocrit 35.2 35.0 - 47.0 % LAB HEMETOLOGY METHOD 09/26/2024 7:00 AM EDT [facility] MCV 85.6 79.0 - 98.0 FL LAB HEMETOLOGY METHOD 09/26/2024 7:00 AM [facility] MCH 28.7 27.0 - 32.0 pcg LAB HEMETOLOGY METHOD 09/26/2024 7:00 AM [facility] MCHC 33.5 32.0 - 37.0 g/dL LAB HEMETOLOGY METHOD 09/26/2024 7:00 AM [facility] RDW 12.8 11.0 - 15.0 % LAB HEMETOLOGY METHOD 09/26/2024 7:00 AM [facility] Platelets 217 130 - 400 K/mcL LAB HEMETOLOGY METHOD 09/26/2024 7:00 AM [facility] MPV 9.3 7.0 - 11.0 FL LAB HEMETOLOGY METHOD 09/26/2024 7:00 AM [facility] NRBC 0.0 <1.0 % LAB HEMETOLOGY METHOD 09/26/2024 7:00 AM [facility] NRBC Absolute 0.00 <0.10 K/mcL LAB HEMETOLOGY METHOD 09/26/2024 7:00 AM [facility] Neutrophils Relative 56.8 % LAB HEMETOLOGY METHOD 09/26/2024 7:00 AM [facility] Lymphocytes Relative 34.7 % LAB HEMETOLOGY METHOD 09/26/2024 7:00 AM [facility] Monocytes Relative 7.1 % LAB HEMETOLOGY METHOD 09/26/2024 7:00 AM [facility] Eosinophils Relative 0.9 % LAB HEMETOLOGY METHOD 09/26/2024 7:00 AM [facility] Basophils Relative 0.2 % LAB HEMETOLOGY METHOD 09/26/2024 7:00 AM [facility] Immature Granulocytes Relative 0.3 % LAB HEMETOLOGY METHOD 09/26/2024 7:00 AM EDT [facility] Neutrophils Absolute 4.90 1.50 - 7.00 K/mcL LAB HEMETOLOGY METHOD 09/26/2024 7:00 AM EDT [facility] Lymphocytes Absolute 3.00 1.00 - 5.00 K/mcL LAB HEMETOLOGY METHOD 09/26/2024 7:00 AM EDT [facility] Monocytes Absolute 0.61 0.20 - 1.00 K/mcL LAB HEMETOLOGY METHOD 09/26/2024 7:00 AM EDT [facility] Eosinophils Absolute 0.08 0.00 - 0.50 K/mcL LAB HEMETOLOGY METHOD 09/26/2024 7:00 AM EDT [facility] Basophils Absolute 0.02 0.00 - 0.20 K/mcL LAB HEMETOLOGY METHOD 09/26/2024 7:00 AM EDT [facility] Immature Granulocytes Absolute 0.03 0.00 - 0.03 K/mcL LAB HEMETOLOGY METHOD 09/26/2024 7:00 AM EDT [facility] Blood Venous blood specimen / Unknown Venipuncture / Unknown 09/26/2024 6:14 AM EDT 09/26/2024 6:34 AM EDT us Kim VILCHIS LAB BLOOD ORDERABLES Final Re sult [facility] [address] [place] [address], * (ABNORMAL) Basic metabolic panel (09/26/2024 6:14 AM EDT) Only the most recent of2 resultswithin the time period is included. Sodium 141 133 - 145 mmol/L LAB CHEMISTRY METHOD 09/26/2024 7:28 AM EDT [facility] Potassium 4.1 3.5 - 5.5 mmol/L LAB CHEMISTRY METHOD 09/26/2024 7:28 AM [facility] Chloride 110 96 - 110 mmol/L LAB CHEMISTRY METHOD 09/26/2024 7:28 AM [facility] CO2 24 21 - 32 mmol/L LAB CHEMISTRY METHOD 09/26/2024 7:28 AM [facility] Anion Gap 7 3 - 11 LAB CHEMISTRY METHOD 09/26/2024 7:28 AM [facility] Glucose 101(H) 70 - 100 mg/dL LAB CHEMISTRY METHOD 09/26/2024 7:28 AM [facility] BUN 11 5 - 25 mg/dL LAB CHEMISTRY METHOD 09/26/2024 7:28 AM [facility] Creatinine 0.82 0.50 - 1.10 mg/dL LAB CHEMISTRY METHOD 09/26/2024 7:28 AM [facility] eGFR 83 >=60 mL/min/1. 73m2 LAB CHEMISTRY METHOD 09/26/2024 7:28 AM [facility] Comment:Calculation based on the Chronic Kidney Disease Epidemiology Collaboration (CKD-EPI) equation refit without adjustment for race. BUN/Creatinine Ratio 13.4 LAB CHEMISTRY METHOD 09/26/2024 7:28 AM [facility] Calcium 8.7 8.5 - 10.5 mg/dL LAB CHEMISTRY METHOD 09/26/2024 7:28 AM [facility] Blood Venous blood specimen / Unknown Venipuncture / Unknown 09/26/2024 6:14 AM EDT 09/26/2024 6:34 AM EDT us Kim VILCHIS LAB BLOOD ORDERABLES Final Re sult [facility] [address] [place] [address], * ECG-Annotated (09/26/2024) us Provider Onbase MD ECG ORDERABLES Final Result * CT Lumbar Spine wo Contrast (09/25/2024 5:07 PM EDT) Anatomical Region Laterality Modality Spine, L-spine Computed Tomogra phy 09/25/2024 5:36 PM EDT Impressions 09/25/2024 5:36 PM EDT Impression: 1. Age-indeterminate although likely remote or subacute L1 compression fracture as described above. 2. Multilevel lumbar degenerative disease. This document has been electronically signed by: Luke Moctezuma MD on 09/25/2024 17:36:56 Narrative 09/25/2024 5:36 PM EDT INDICATION: Compression fracture, L-spine Exam: Nonenhanced CT of the lumbar spine with multiplanar reformats. Comparison: None. Findings: Osseous structures: There is age-indeterminate although likely nonacute or subacute anterior compression deformity at L1, with loss of 30% vertebral body height anteriorly. No definable fracture lines are appreciated. There may be trace paravertebral stranding, which could suggest subacute fracture. Remaining lumbar vertebral body heights and alignment are maintained with no other fracture or traumatic malalignment. There is diffuse moderate vertebral body spurring. Bilateral facet arthropathy is present L4-S1. Soft tissues: No gross abnormal epidural or paraspinal soft tissue. Likely moderate disc bulging at L2-3 may result in mild central canal stenoses (8; 37). There may be [id number] central canal stenoses at L4-5 related to disc bulging as well as bilateral facet arthropathy (8; 58). Visualized visceral structures reveal no acute abnormalities. Procedure Note Luke Moctezuma MD - 09/25/2024 INDICATION: Compression fracture, L-spine Exam: Nonenhanced CT of the lumbar spine with multiplanar reformats. Comparison: None. Findings: Osseous structures: There is age-indeterminate although likely nonacuteor subacute anterior compression deformity at L1, with loss of 30%vertebral body height anteriorly. No definable fracture lines are appreciated.There may be trace paravertebral stranding, which could suggest subacute fracture. Remaining lumbar vertebral body heights and alignment are maintained with no other fracture or traumatic malalignment. There is diffuse moderate vertebral body spurring. Bilateral facet arthropathy is present L4-S1. Soft tissues: No gross abnormal epidural or paraspinal soft tissue.Likely moderate disc bulging at L2-3 may result in mild central canal stenoses (8; 37). There may be [id number] central canal stenoses at L4-5 related to disc bulging as well as bilateral facet arthropathy (8; 58). Visualized visceral structures reveal no acute abnormalities. IMPRESSION: Impression: 1. Age-indeterminate although likely remote or subacute L1 compression fracture as described above. 2. Multilevel lumbar degenerative disease. This document has been electronically signed by: Luke Moctezuma MD on 09/25/2024 17:36:[address] IM CT PROCEDURES Final Resul t * CT Thoracic Spine wo Contrast (09/25/2024 5:07 PM EDT) Anatomical Region Laterality Modality Spine, T-spine Computed Tomogra phy 09/25/2024 5:38 PM EDT Impressions 09/25/2024 5:38 PM EDT Impression: 1. Diffuse thoracic degenerative disease as described above. No thoracic vertebral fractures or traumatic malalignment. 2. L1 compression deformity, please see same day lumbar spine CT report. This document has been electronically signed by: Luke Moctezuma MD on 09/25/2024 17:38:00 Narrative 09/25/2024 5:38 PM EDT INDICATION: Compression fracture, T-spine Exam: Unenhanced CT thoracic spine with multiplanar reformats. Comparison: None. Findings: Osseous structures: Thoracic vertebral body heights and alignment are well-maintained, with no evidence of thoracic vertebral fractures or traumatic malalignment. L1 compression deformity is present, please see same day lumbar spine CT report. There is diffuse moderate vertebral body spurring compatible with diffuse thoracic degenerative disc disease. No destructive osseous lesions. Soft tissues: No gross abnormal epidural or paraspinal soft tissue. Visualized lungs are clear bilaterally. Visualized visceral structures reveal no acute abnormalities. Procedure Note Luke Moctezuma MD - 09/25/2024 INDICATION: Compression fracture, T-spine Exam: Unenhanced CT thoracic spine with multiplanar reformats. Comparison: None. Findings: Osseous structures: Thoracic vertebral body heights and alignment are well-maintained, with no evidence of thoracic vertebral fractures or traumatic malalignment. L1 compression deformity is present, please see same day lumbar spine CT report. There is diffuse moderate vertebralbody spurring compatible with diffuse thoracic degenerative disc disease. No destructive osseous lesions. Soft tissues: No gross abnormal epidural or paraspinal soft tissue. Visualized lungs are clear bilaterally. Visualized visceral structures reveal no acute abnormalities. IMPRESSION: Impression: 1. Diffuse thoracic degenerative disease as described above. No thoracic vertebral fractures or traumatic malalignment. 2. L1 compression deformity, please see same day lumbar spine CT report. This document has been electronically signed by: Luke Moctezuma MD on 09/25/2024 17:38:[address] PROCEDURES Final Resul t * XR Knee 4+ Views Right (09/25/2024 5:00 PM EDT) Anatomical Region Laterality Modality Lower Extremities, Knee Right Radiogra phic Imaging 09/25/2024 5:16 PM EDT Impressions 09/25/2024 5:17 PM EDT Degenerative changes with small joint effusion. No acute fracture or dislocation. -------- FINAL REPORT -------- Dictated By: Annmarie Tineo Dictated Date: 09/25/2024 17:16 ET Assigned Physician: Annmarie Tineo Reviewed and Electronically Signed By: Annmarie Tineo Signed Date: 09/25/2024 17:17 ET Workstation ID: [id number] Transcribed By: Self Edit Transcribed Date: 09/25/2024 17:16 ET Narrative 09/25/2024 5:17 PM EDT INDICATION: Fall with knee pain FINDINGS: 4 views of the right knee were obtained. No prior studies available for comparison. Bones: Tricompartmental degenerative changes with joint space narrowing and osteophyte formation. No acute fracture or dislocation. Soft tissues: Small joint effusion suspected. Procedure Note Annmarie Tineo MD - 09/25/2024 INDICATION: Fall with knee pain FINDINGS: 4 views of the right knee were obtained. No prior studiesavailable for comparison. Bones: Tricompartmental degenerative changes with joint space narrowingand osteophyte formation. No acute fracture or dislocation. Soft tissues: Small joint effusion suspected. IMPRESSION: Degenerative changes with small joint effusion. No acute fracture ordislocation. -------- FINAL REPORT -------- Dictated By: Annmarie Tineo Dictated Date: 09/25/2024 17:16 ET Assigned Physician: Annmarie Tineo Reviewed and Electronically Signed By: Annmraie Tineo Signed Date: 09/25/2024 17:17 ET Workstation ID: [id number] Transcribed By: Self Edit Transcribed Date: 09/25/2024 17:16 ET Kim VILCHIS IMG XR PROCEDURES Final Resul t * MR Brain wo Contrast (09/25/2024 3:22 PM EDT) Anatomical Region Laterality Modality Head and Neck Magnetic Resonan ce 09/25/2024 3:34 PM EDT Impressions 09/25/2024 3:36 PM EDT No acute infarct, mass, or intracranial hemorrhage.. -------- FINAL REPORT -------- Dictated By: RUSTY GAYTAN Dictated Date: 09/25/2024 15:34 ET Assigned Physician: RUSTY GAYTAN Reviewed and Electronically Signed By: RUSTY GAYTAN Signed Date: 09/25/2024 15:36 ET Workstation ID: [id number] Transcribed By: Self Edit Transcribed Date: 09/25/2024 15:34 ET Narrative 09/25/2024 3:36 PM EDT PROCEDURE: Brain MRI INDICATION: Stroke, pain TECHNIQUE: Multiplanar, multisequence MRI of the brain Without contrast. COMPARISON: 09/25/[address] and CTA FINDINGS: No acute infarct, mass effect, or intracranial hemorrhage. Minimal chronic small vessel ischemic change seen throughout the supratentorial white matter.. Sella and foramen magnum are within normal limits. No abnormal intracranial susceptibility artifact. Mild diffuse cerebral volume loss with prominence of ventricles and sulci. No hydrocephalus.. Major intracranial arterial flow voids are normal. Intracranial arterial vasculature is better assessed on recent CTA. Sinuses and mastoid air cells are clear. Orbits and extra cranial soft tissues are normal. Calvarium is normal. Procedure Note Rusty Gaytan MD - 09/25/2024 PROCEDURE: Brain MRI INDICATION: Stroke, pain TECHNIQUE: Multiplanar, multisequence MRI of the brain Without contrast. COMPARISON: 09/25/[address] and CTA FINDINGS: No acute infarct, mass effect, or intracranial hemorrhage. Minimal chronic small vessel ischemic change seen throughout thesupratentorial white matter.. Sella and foramen magnum are within normal limits. No abnormal intracranial susceptibility artifact. Mild diffuse cerebral volume loss with prominence of ventricles and sulci.No hydrocephalus.. Major intracranial arterial flow voids are normal. Intracranial arterialvasculature is better assessed on recent CTA. Sinuses and mastoid air cells are clear. Orbits and extra cranial soft tissues are normal. Calvarium is normal. IMPRESSION: No acute infarct, mass, or intracranial hemorrhage.. -------- FINAL REPORT -------- Dictated By: RUSTY GAYTAN Dictated Date: 09/25/2024 15:34 ET Assigned Physician: RUSTY GAYTAN Reviewed and Electronically Signed By: RUSTY GAYTAN Signed Date: 09/25/2024 15:36 ET Workstation ID: [id number] Transcribed By: Self Edit Transcribed Date: 09/25/2024 15:34 ET Kim VILCHIS [facility] MRI PROCEDURES Final Resu lt * (ABNORMAL) Urinalysis with reflex microscopic and culture (09/25/2024 1:15 PM EDT) Specific [place] Urine >1.045(H) 1.003 - 1.030 LAB URINALYSIS - AUTOMATED METHOD 09/25/2024 2:23 PM EDT [facility] pH, Urine 5.5 5.0 - 8.0 pH LAB URINALYSIS - AUTOMATED METHOD 09/25/2024 2:23 PM EDT [facility] Leukocytes, Urine Small(A) Negative LAB URINALYSIS - AUTOMATED METHOD 09/25/2024 2:23 PM EDT [facility] Nitrite, Urine Negative Negative LAB URINALYSIS - AUTOMATED METHOD 09/25/2024 2:23 PM [facility] Protein, Urine Trace <=Trace mg/dL LAB URINALYSIS - AUTOMATED METHOD 09/25/2024 2:23 PM [facility] Glucose, Urine Negative Negative mg/dL LAB URINALYSIS - AUTOMATED METHOD 09/25/2024 2:23 PM [facility] Ketones, Urine Negative Negative mg/dL LAB URINALYSIS - AUTOMATED METHOD 09/25/2024 2:23 PM [facility] Urobilinogen , Urine 1.0 0.2 - 1.0 mg/dL LAB URINALYSIS - AUTOMATED METHOD 09/25/2024 2:23 PM [facility] Bilirubin, Urine Negative Negative LAB URINALYSIS - AUTOMATED METHOD 09/25/2024 2:23 PM [facility] Blood, Urine Negative Negative LAB URINALYSIS - AUTOMATED METHOD 09/25/2024 2:23 PM [facility] RBC, Urine 1.5 0 - 4 /HPF LAB URINALYSIS - AUTOMATED METHOD 09/25/2024 2:23 PM [facility] WBC, Urine 11.6(H) 0 - 4 /HPF LAB URINALYSIS - AUTOMATED METHOD 09/25/2024 2:23 PM [facility] Squamous Epithelial, Urine 44 0 - 60 /LPF LAB URINALYSIS - AUTOMATED METHOD 09/25/2024 2:23 PM [facility] Bacteria, Urine Negative Negative /HPF LAB URINALYSIS - AUTOMATED METHOD 09/25/2024 2:23 PM [facility] Hyaline Casts, Urine 1.6 0 - 3 /LPF LAB URINALYSIS - AUTOMATED METHOD 09/25/2024 2:23 PM [facility] Urine Urine specimen obtained by clean catch procedure / Unknown Non-blood Collection / Unknown 09/25/2024 1:15 PM EDT 09/25/2024 1:59 PM EDT us Crispin Bergman MD LAB URINE ORDERABLES Final Resul t Performing Organization Address [facility]/ZIP Co de Phone Number [facility] [address] [place] [address], [place] [phone] * Mckeon urine culture tube (09/25/2024 1:15 PM EDT) Extra Tube Hold for add-ons. 09/25/2024 3:01 PM EDT [facility] Comment:Auto resulted. Urine Urine specimen obtained by clean catch procedure / Unknown Non-blood Collection / Unknown 09/25/2024 1:15 PM EDT 09/25/2024 1:59 PM EDT us Crispin Bergman MD LAB URINE ORDERABLES Final Resul t Performing Organization Address [facility] de Phone Number [facility] [address] [place] [address], [place] [phone] * Culture urine (09/25/2024 1:15 PM EDT) Culture, Urine No growth 09/26/2024 10:21 AM EDT [facility] Urine Urine specimen obtained by clean catch procedure / Unknown Non-blood Collection / Unknown 09/25/2024 1:15 PM EDT 09/25/2024 2:23 PM EDT us Crispin Bergman MD LAB MICROBIOLOGY - GENERAL ORDER JASMYNE Final Result Performing Organization Address [facility]/ZIP Co de Phone Number [facility] [address] [place] [address], [place] [phone] * Troponin I high sensitivity (09/25/2024 11:46 AM EDT) Only the most recent of2 resultswithin the time period is included. Pathologist [facility] High Sensitivity Troponin I 11 <=54 ng/L LAB CHEMISTRY METHOD 09/25/2024 12:44 PM EDT [facility] Blood Venous blood specimen / Unknown Venipuncture / Unknown 09/25/2024 11:46 AM EDT 09/25/2024 12:07 PM EDT Narrative [facility] - 09/25/2024 12:44 PM EDT High levels of biotin in samples may falsely decrease hsTroponin values. Use caution when interpreting hsTroponin results in patients taking biotin who exhibit renal impairment (eGFR <60) or in patients taking more than 20 mg/day of biotin. us Crispin Bergman MD LAB BLOOD ORDERABLES Final Resul t Performing Organization Address [facility]/ZIP Co de Phone Number [facility] [address] [place] [address], [place] [phone] * Activated partial thromboplastin time (09/25/2024 11:46 AM EDT) [facility] aPTT 26.7 24.1 - 39.3 sec LAB COAGULATION METHOD 09/25/2024 12:19 PM EDT [facility] Blood Venous blood specimen / Unknown Venipuncture / Unknown 09/25/2024 11:46 AM EDT 09/25/2024 12:07 PM EDT us Crispin Bergmna MD LAB BLOOD ORDERABLES Final Resul t Performing Organization Address City/[facility]/ZIP Co de Phone Number [facility] [address] [place] [address], [place] [phone] * Prothrombin time with INR (09/25/2024 11:46 AM EDT) [facility] Protime 12.1 10.6 - 13.9 sec LAB COAGULATION METHOD 09/25/2024 12:19 PM EDT [facility] INR 1.0 LAB COAGULATION METHOD 09/25/2024 12:19 PM EDT [facility] Blood Venous blood specimen / Unknown Venipuncture / Unknown 09/25/2024 11:46 AM EDT 09/25/2024 12:07 PM EDT us Crispin Bergman MD LAB BLOOD ORDERABLES Final Resul t [facility] [address] [place] [address], * CT Angio Head/Neck Stroke wo and/or w Contrast (09/25/2024 11:24 AM EDT) Anatomical Region Laterality Modality Head and Neck Computed Tomogra phy 09/25/2024 11:3 9 AM EDT Impressions 09/25/2024 11:53 AM EDT No large vessel occlusion, aneurysm, dissection, or hemodynamically significant cervical ICA stenosis. [employer] PA ([id number]) -------- FINAL REPORT -------- Dictated By: Marci Faith Dictated Date: 09/25/2024 11:39 ET Assigned Physician: Marci Faith Reviewed and Electronically Signed By: Marci Faith Signed Date: 09/25/2024 11:53 ET Workstation ID: [id number] Transcribed By: Self Edit Transcribed Date: 09/25/2024 11:39 ET Narrative 09/25/2024 11:53 AM EDT History: Stroke. Comparison: Noncontrast brain CT from immediately prior, neck CT 07/18/22 Technique: Helical volumetric imaging of the head and neck was performed, during the rapid, uneventful intravenous administration of 90cc's Isovue-370, using the CT angiography protocol tailored for evaluation of the neck and intracranial vasculature. Coronal and sagittal images were reformatted from the original data set and maximum intensity pixel images were reviewed, in multiple planes. Delayed postcontrast axial imaging through the brain was also performed. DLP: 2746.51 mGy/cm Beguner Iterative reconstruction technique FINDINGS: CTA: INTRACRANIAL VASCULATURE: The bilateral A1 and M1 segments are widely patent. The more distal branches of the anterior and middle cerebral arteries are also patent. A patent anterior communicating artery is seen. The basilar artery is patent and terminates in the bilateral importer exporter. Both importer exporter are also supplied by the internal carotid arteries, an anatomic variant. No large vessel occlusion or aneurysm is seen. The major intracranial venous sinuses are patent. AORTIC ARCH: The aortic arch is patent and has a normal three-vessel branching pattern. The arch vessel origins are widely patent. RIGHT CAROTID ARTERY: A small portion of the proximal right common carotid artery is obscured by motion artifact, limiting assessment. The common carotid artery is otherwise widely patent. The internal and external carotid arteries are patent. No hemodynamically significant narrowing is seen by NASCET criteria. No carotid dissection is seen. LEFT CAROTID ARTERY: A small portion of the proximal left common carotid artery is obscured by motion artifact. The common carotid artery is otherwise widely patent. The internal and external carotid arteries are patent. No hemodynamically significant stenosis by NASCET criteria is seen. There is no evidence of carotid dissection. VERTEBRAL ARTERIES: The bilateral vertebral arteries are patent throughout their course, terminating in the basilar artery. No vertebral dissection is seen. Ancillary Findings: The palatine tonsils have decreased in size since the [address] but remain heterogeneously attenuating, possibly related to chronic infection. The parapharyngeal fat is preserved. There are multiple small hypoattenuating nodules within the nonenlarged thyroid gland, most likely multinodular goiter. Cervical spondylosis and degenerative disc disease are noted. Procedure Note Marci Faith MD - 09/25/2024 History: Stroke. Comparison: Noncontrast brain CT from immediately prior, neck CT 07/18/22 Technique: Helical volumetric imaging of the head and neck was performed,during the rapid, uneventful intravenous administration of 90cc'sIsovue-370, using the CT angiography protocol tailored for evaluation ofthe neck and intracranial vasculature. Coronal and sagittal images werereformatted from the original data set and maximum intensity pixel imageswere reviewed, in multiple planes. Delayed postcontrast axial imaging through the brain was also performed. DLP: 2746.51 mGy/cm Beguner Iterative reconstruction technique FINDINGS: CTA: INTRACRANIAL VASCULATURE: The bilateral A1 and M1 segments are widelypatent. The more distal branches of the anterior and middle cerebralarteries are also patent. A patent anterior communicating artery is seen.The basilar artery is patent and terminates in the bilateral importer exporter. BothPCAs are also supplied by the internal carotid arteries, an anatomicvariant. No large vessel occlusion or aneurysm is seen. The major intracranial venous sinuses are patent. AORTIC ARCH: The aortic arch is patent and has a normal three-vesselbranching pattern. The arch vessel origins are widely patent. RIGHT CAROTID ARTERY: A small portion of the proximal right common carotidartery is obscured by motion artifact, limiting assessment. The commoncarotid artery is otherwise widely patent. The internal and externalcarotid arteries are patent. No hemodynamically significant narrowing isseen by NASCET criteria. No carotid dissection is seen. LEFT CAROTID ARTERY: A small portion of the proximal left common carotidartery is obscured by motion artifact. The common carotid artery isotherwise widely patent. The internal and external carotid arteries arepatent. No hemodynamically significant stenosis by NASCET criteria isseen. There is no evidence of carotid dissection. VERTEBRAL ARTERIES: The bilateral vertebral arteries are patent throughouttheir course, terminating in the basilar artery. No vertebral dissectionis seen. Ancillary Findings: The palatine tonsils have decreased in size since the [address] butremain heterogeneously attenuating, possibly related to chronic infection.The parapharyngeal fat is preserved. There are multiple small hypoattenuating nodules within the nonenlargedthyroid gland, most likely multinodular goiter. Cervical spondylosis and degenerative disc disease are noted. IMPRESSION: No large vessel occlusion, aneurysm, dissection, or hemodynamicallysignificant cervical ICA stenosis. [employer] PA ([id number]) -------- FINAL REPORT -------- Dictated By: Marci Faith Dictated Date: 09/25/2024 11:39 ET Assigned Physician: Marci Faith Reviewed and Electronically Signed By: Marci Faith Signed Date: 09/25/2024 11:53 ET Workstation ID: [id number] Transcribed By: Self Edit Transcribed Date: 09/25/2024 11:39 ET Crispin Bergman MD [facility] CT PROCEDURES Final Result * CT Head Stroke wo Contrast (09/25/2024 11:23 AM EDT) Anatomical Region Laterality Modality Head and Neck Computed Tomogra phy 09/25/2024 11:2 5 AM EDT Impressions 09/25/2024 11:29 AM EDT Impression: No acute hemorrhage or intracranial mass effect. No significant change. The findings were conveyed to the referring provider at the time of interpretation on 09/25/24 (11:29 AM) versus by secure text message (WHObyYOU). This provider is not registered with the critical results system at this time. [employer] MAME ([id number]) -------- FINAL REPORT -------- Dictated By: Marci Faith Dictated Date: 09/25/2024 11:25 ET Assigned Physician: Marci Faith Reviewed and Electronically Signed By: Marci Faith Signed Date: 09/25/2024 11:29 ET Workstation ID: [id number] Transcribed By: Self Edit Transcribed Date: 09/25/2024 11:25 ET Narrative 09/25/2024 11:29 AM EDT History: Stroke. Dizziness. Fall. Last known well time less than 24 hours ago. Comparison: 11/08/23 Technique: Contiguous axial images were obtained at 2.5 mm intervals through the posterior fossa and at 5 mm intervals through the remainder of the brain without intravenous contrast. DLP: 854.08 mGy/cm CCTV Wireless Bosque Iterative reconstruction technique Findings: Moderate generalized cerebral volume loss is again demonstrated. Mckeon-white differentiation is maintained area no abnormal intra- or extra-axial masses or fluid collections are seen. There is no evidence of acute intracranial hemorrhage. The included portions of the paranasal sinuses and mastoid air cells are clear. The calvarium is intact. Procedure Note Marci Faith MD - 09/25/2024 History: Stroke. Dizziness. Fall. Last known well time less than 24 hoursago. Comparison: 11/08/23 Technique: Contiguous axial images were obtained at 2.5 mm intervalsthrough the posterior fossa and at 5 mm intervals through the remainder ofthe brain without intravenous contrast. DLP: 854.08 mGy/cm CCTV Wireless Bosque Iterative reconstruction technique Findings: Moderate generalized cerebral volume loss is again demonstrated.Mckeon-white differentiation is maintained area no abnormal intra- orextra-axial masses or fluid collections are seen. There is no evidence ofacute intracranial hemorrhage. The included portions of the paranasal sinuses and mastoid air cells areclear. The calvarium is intact. IMPRESSION: Impression: No acute hemorrhage or intracranial mass effect. No significant change. The findings were conveyed to the referring provider at the time ofinterpretation on 09/25/24 (11:29 AM) versus by secure text message(WHObyYOU). This provider is not registered with the critical results system at thistime. [employer] MAME ([id number]) -------- FINAL REPORT -------- Dictated By: Marci Faith Dictated Date: 09/25/2024 11:25 ET Assigned Physician: Marci Faith Reviewed and Electronically Signed By: Marci Faith Signed Date: 09/25/2024 11:29 ET Workstation ID: [id number] Transcribed By: Self Edit Transcribed Date: 09/25/2024 11:25 ET Crispin Bergman MD IMG CT PROCEDURES Final Result * XR Chest 2 Views (09/25/2024 10:20 AM EDT) Anatomical Region Laterality Modality Body Radiographic Naty ging 09/25/2024 10:3 8 AM EDT Impressions 09/25/2024 10:40 AM EDT Impression: 1. No active pulmonary process identified. 2. Mild compression fracture at the thoracolumbar junction, new from 12/15/23 but otherwise age indeterminate. No retropulsion. [employer] MAME ([id number]) -------- FINAL REPORT -------- Dictated By: Marci Faith Dictated Date: 09/25/2024 10:38 ET Assigned Physician: Marci Faith Reviewed and Electronically Signed By: Marci Faith Signed Date: 09/25/2024 10:40 ET Workstation ID: [id number] Transcribed By: Self Edit Transcribed Date: 09/25/2024 10:38 ET Narrative 09/25/2024 10:40 AM EDT History: Chest pain. Generalized weakness. Comparison: 12/15/23 Findings: PA and lateral views. The cardiac silhouette remains mildly enlarged. Hilar and mediastinal contours are stable and the pulmonary vascularity is within normal limits. The lungs are clear. The costophrenic angles are sharp. Thoracic vertebral endplate spurring is noted. There is mild loss of height of a lower thoracic or upper lumbar vertebral body, without retropulsion, appearing new from the previous study. Cholecystectomy clips are noted. Procedure Note Marci Faith MD - 09/25/2024 History: Chest pain. Generalized weakness. Comparison: 12/15/23 Findings: PA and lateral views. The cardiac silhouette remains mildly enlarged.Hilar and mediastinal contours are stable and the pulmonary vascularity iswithin normal limits. The lungs are clear. The costophrenic angles aresharp. Thoracic vertebral endplate spurring is noted. There is mild loss ofheight of a lower thoracic or upper lumbar vertebral body, withoutretropulsion, appearing new from the previous study. Cholecystectomy clips are noted. IMPRESSION: Impression: 1. No active pulmonary process identified. 2. Mild compression fracture at the thoracolumbar junction, new from12/15/23 but otherwise age indeterminate. No retropulsion. [employer] PA ([id number]) -------- FINAL REPORT -------- Dictated By: Marci Faith Dictated Date: 09/25/2024 10:38 ET Assigned Physician: Marci Faith Reviewed and Electronically Signed By: Marci Faith Signed Date: 09/25/2024 10:40 ET Workstation ID: [id number] Transcribed By: Self Edit Transcribed Date: 09/25/2024 10:38 ET us Crispin Bergman MD IMG XR PROCEDURES Final Result * ECG 12 lead (09/25/2024 10:08 AM EDT) Ventricular Rate ECG 80 BPM GEMUSE Atrial Rate 80 BPM GEMUSE P-R Interval 182 ms GEMUSE QRS Duration 74 ms GEMUSE Q-T Interval 394 ms GEMUSE QTc 454 ms GEMUSE P Wave [place] 62 degrees GEMUSE R [place] -6 degrees GEMUSE T [place] 33 degrees GEMUSE ECG Interpretation Normal sinus rhythm Cannot rule out Anterior infarct , age undetermined Abnormal ECG When compared with ECG of 16-JUN-2023 01:22, No significant change was found Confirmed by PEACE ROSALES ([id number]) on 09/26/2024 7:23:41 PM GEMUSE 09/25/2024 10:0 8 AM EDT 09/26/2024 7:23 PM EDT Crispin Bergman MD ECG ORDERABLES Final Result Performing Organization Address [facility] de Phone Number GEMUSE * Magnesium (09/25/2024 9:58 AM EDT) Pathologist [facility] Magnesium 2.0 1.9 - 2.6 mg/dL LAB CHEMISTRY METHOD 09/25/2024 10:41 AM EDT [facility] Blood Venous blood specimen / Unknown Venipuncture / Unknown 09/25/2024 9:58 AM EDT 09/25/2024 10:09 AM EDT Crispin Bergman MD LAB BLOOD ORDERABLES Final Resul t Performing Organization Address [facility] de Phone Number [facility] [address] [place] [address], * Hemoglobin A1c (09/25/2024 9:58 AM EDT) Hemoglobin A1C 5.6 <6.5 % LAB CHEMISTRY METHOD 09/25/2024 3:19 PM EDT [facility] Mean Bld Glu Estim. 114 mg/dL LAB CHEMISTRY METHOD 09/25/2024 3:19 PM EDT [facility] Blood Venous blood specimen / Unknown Venipuncture / Unknown 09/25/2024 9:58 AM EDT 09/25/2024 10:09 AM EDT Kim VILCHIS LAB BLOOD ORDERABLES Final Re sult Performing Organization Address City/[facility]/ZIP Co de Phone Number [facility] [address] [place] [address], [place] [phone] * POCT Glucose, blood (09/25/2024 9:57 AM EDT) Glucose POCT 95 70 - 100 mg/dL 09/25/2024 9:58 AM EDT [facility] Blood Capillary blood specimen / Unknown 09/25/2024 9:57 AM EDT 09/25/2024 10:00 AM EDT us Generic Provider Poct LAB POINT OF CARE TEST DOCKED DEVICE UNSOLICITED RESULTS Final Result Performing Organization Address [facility] Co de Phone Number [facility] [address] [place] [address], [place] [phone] * MT CRITICAL CARE 30-74 MINUTES (09/25/2024 9:25 AM EDT) Crispin Gaines MD - 09/25/2024 9:25 AM EDT Crispin Bergman MD 09/25/2024 2:36 PM Critical Care Performed by: Crispin Bergman MD Authorized by: Crispin Bergman MD Critical care provider statement: Critical care time (minutes): 36 Total face to face critical care time (minutes): 36 Critical care time was exclusive of: Separately billable procedures and treating other patients Critical care was time spent personally by me on the following activities: Development of treatment plan with patient or surrogate, discussions with consultants, evaluation of patient's response to treatment, ordering and review of laboratory studies, ordering and review of radiographic studies, re-evaluation of patient's condition, review of old charts, ordering and performing treatments and interventions and examination of patient I assumed direction of critical care for this patient from another provider in my specialty: no Care discussed with: admitting provider Comments: Urgent valuation for presentation with stroke like symptoms, emergent evaluation by stroke specialist, consideration for thrombolytic or thrombectomy therapy. us Crispin Bergman MD IN CLINIC/BEDSIDE ORDERABLES Fin al Result * SARA SCREENING DIGITAL (2023 1:00 PM EDT) Anatomical Region Laterality Modality Mammography 2023 10:4 5 AM EDT Narrative 2023 1:00 PM EDT [facility] Diagnostic Imaging Department [address] [place] [id number] Patient: UCHE SILVA R /Age/Sex: 1965 - 58 - F Unit#: [id number] Location/Status: SPDIMAM/REG CLI Mnemonic/Ordering Site: [facility] Ordering Physician: DAMIAN WILLOUGHBY RN [facility] Screening Digital - 09/13/23 - 1102 Report Status:Signed EXAM: [facility] Screening Digital EXAM DATE AND TIME: 2023 11:02 AM HISTORY: Screening. COMPARISON: 10/29/18, 10/18/17 TECHNIQUE: Bilateral digital breast tomosynthesis was performed in the CC and MLO projections. Computer aided detection with [employer] Syndero 3D 3.1 was employed. TISSUE DENSITY: b. There are scattered areas of fibroglandular density. FINDINGS: No suspicious masses, grouped microcalcifications, or areas of architectural distortion are seen. There are rare benign calcifications. The skin and vascularity are unremarkable. IMPRESSION: Stable mammographic appearance of the breasts. No evidence of malignancy is seen. A negative mammogram in the presence of a clinically suspicious palpable abnormality does not preclude the possibility of malignancy or alter the indications for biopsy. BI-RADS: Category 2: Benign RECOMMENDATION(S): 1: Routine screening mammogram BILATERAL in 1 year. Dictating Physician: MARCI FAITH MD Electronically Signed by: MARCI FAITH MD Dic Date/Time: 09/13/23 1259 Sign date/Time: 09/13/23 1300 Procedure Note Marci Faith MD - 11/29/2023 [facility] Diagnostic Imaging Department [address] [place] [id number] Patient: UCHE SILVA Dwain Aviles/Age/Sex: 1965 - 58 - F Unit#: [id number] Location/Status: [facility] CLI Mnemonic/Ordering Site: [facility] Ordering Physician: DAMIAN WILLOUGHBY RN [facility] Screening Digital - 09/13/23 - 1102 Report Status:Signed EXAM: [facility] Screening Digital EXAM DATE AND TIME: 2023 11:02 AM HISTORY: Screening. COMPARISON: 10/29/18, 10/18/17 TECHNIQUE: Bilateral digital breast tomosynthesis was performed in the CCand MLO projections. Computer aided detection with [employer] 3D 3.1was employed. TISSUE DENSITY: b. There are scattered areas of fibroglandular density. FINDINGS: No suspicious masses, grouped microcalcifications, or areas ofarchitectural distortion are seen. There are rare benign calcifications. The skin and vascularity are unremarkable. IMPRESSION: Stable mammographic appearance of the breasts. No evidence of malignancyis seen. A negative mammogram in the presence of a clinically suspicious palpable abnormality does not preclude the possibility of malignancy or alter the indications for biopsy. BI-RADS: Category 2: Benign RECOMMENDATION(S): 1: Routine screening mammogram BILATERAL in 1 year. Dictating Physician: MARCI FAITH MD Electronically Signed by: MARCI FAITH MD Dic Date/Time: 09/13/23 1259 Sign date/Time: 09/13/23 1300 Damian Willoughby RN IMG BI PROCEDURES Yanely l Result from Last 3 Months or Most Recently Relevant to Health Maintenance Insurance MEDICAID - [place] Care Teams Laser Operator Relationship Specialty Start Date End Date Damian Willoughby RN [address] [address] PCP - General 11/01/21
--- OUTSIDE RECORDS SUMMARY | 2024-12-05 17:01 | XMS_ITS | Encounter Summary ---
Author Organization [employer] Address [address] [facility] 7t [place] [address] Care Team Providers Care Landscape Architecture Professor Name Role Phone Lo Davis Primary Care Provider Chance Navarro Unavailable [phone] Viki Lama MD Unavailable Chance Navarro Unavailable [phone] Avelino Desai RN Unavailable [phone] Korina Cohen Unavailable Encounter Details Date Type Department Care Team (Late st Contact Info) Description 02/26/2024 Orders Only [facility] [address] [place], [place] [phone] Lo Davis FNP [address] [place], [place] [phone] Other specified hypothyroidism (Primary Dx) Social History Tobacco Use Types [...] Description 12/30/2024 11:15 AM EST Office Visit [facility] [address] [place] [address] Lo Davis FNP [address] [place] [address] Scheduled Orders Name Type Priority Associated Diagnoses Orde r Schedule TSH W/Reflex to FT4 Lab Routine Other specified hypothyroidism Expected: 02/26/2024 (Approximate), Expires: 02/25/2025 documented as of this encounter Visit Diagnoses Diagnosis Other specified hypothyroidism- Primary documented in this encounter Additional Health Concerns Assessment Noted Time PHQ-9 Depression Total Score: 16 023 9:26 AM EDT documented as of this encounter Care Teams Landscape Architecture Professor Relationship Specialty Start Date End Date Lo Davis FNP [address] [place] [phone] PCP - General Family Medicine 04/29/21 Chance Navarro PA [facility] [address] [phone] Urology 01/08/24 Viki Lama MD [address] [place] [address] Dr Arell[address] [place] [address] Neurology 01/08/24 Chance Navarro PA [facility] [address] [phone] Urology 02/04/24 Avelino Desai RN [address] [place] [phone] Registered Nurse Family Medicine 09/26/24 10/10/24 Korina Cohen 09/26/24 10/10/24 [facility] 02/27/24 documented as of this encounter
--- OUTSIDE RECORDS SUMMARY | 2024-12-05 17:01 | XMS_ITS | Encounter Summary ---
Author Organization [employer] Address [address] [facility] [address]t [place] [address] Care Team Providers Care Medical Voucher Clerk Name Role Phone Lo Davis BRASS PICKLER Primary Care Provider [phone] Chance Navarro Unavailable [phone] Viki Lama MD Unavailable [phone] Chance Navarro Unavailable [phone] Avelino Desai RN Unavailable [phone] Korina Cohen Unavailable Encounter Details Date Type Department Care Team (Late st Contact Info) Description 09/27/2024 Orders Only [facility] MED [facility] PEDS [address] [place], [place] [phone] Provider, MD Conrado Social History Tobacco Use Types Packs/Day Years Used Date Smoking Tobacco: Never Passive Smoke Exposure: Never Smokeless Tobacco: Never Alcohol Use Standard Drinks/Week Comments Never 0 (1 standard drink = 0.6 oz pur e alcohol) Depression Answer Date Recorded Patient Health Questionnaire-9 Score 16 07/21/2022 Housing Stability Answer Date Recorded What is your housing situation today? I have blaire mauro 09/30/[address] you li ve. Do you have problems with any of the following? None of the above 09/30/2024 Food Insecurity Answer Date Recorded Within the past 12 months, y ou worried that your food would run out before you got money to buy more: Never True 09/30/2024 Within the past 12 months,th e food you bought just didn't last and you didn't have enough money to get more: Never True Transportation Answer Date Recorded In the past 12 months, has l ack of transportation kept you from medical appts, meetings, work or from getting things needed for daily living? No 09/30/2024 Utilities Answer Date Recorded In the past 12 months, has t he electric, gas, oil or water company threatened to shut off services in your home? No 09/30/2024 Depression Answer Date Recorded Patient Health Questionnaire-2 Score 3 07/21/2022 Internet Access Answer Date Recorded Internet Access Q1 Yes 09/30/2024 Internet Access Q2 Not on file 09/30/2024 Comments No Sex and Gender Information Value [...] Description 12/30/2024 11:15 AM EST Office Visit [facility] [address] [place], [place] [phone] Lo Davis FNP [address] [place] [address] documented as of this encounter Procedures Procedure Name Priority Date/Time Associated Diagnosis Comments CTA HEAD NECK W AND WO CONTRAST Routine 09/25/2024 10:07 AM EDT documented in this encounter Results * CTA Head Neck w/ and w/o Contrast (09/25/2024 10:07 AM EDT) Anatomical Region Laterality Modality Head, Neck Computed Tomogra phy us Historical Provider MD CABA CT PROCEDURES Final R esult documented in this encounter Visit Diagnoses Not on filedocumented in this encounter Additional Health Concerns Assessment Noted Time PHQ-9 Depression Total Score: 16 023 9:26 AM EDT documented as of this encounter Care Teams Medical Voucher Clerk Relationship Specialty Start Date End Date Lo Davis FNP [address] [place] [address] PCP - General Family Medicine 04/29/21 Chance Navarro PA [address] [phone] Urology 01/08/24 Viki Lama MD [address] [place] [address] Neurology 01/08/24 Chance Navarro PA [address] [phone] Urology 02/04/24 Avelino Desai RN [address] [place] [address] Registered Nurse Family Medicine 09/26/24 10/10/24 Korina Cohen 09/26/24 10/10/24 [facility] 02/27/24 documented as of this encounter
--- OUTSIDE RECORDS SUMMARY | 2024-12-05 17:01 | XMS_ITS | Encounter Summary ---
Author Organization [facility] Address [address] [place] [address] [address] [place] [address] Care Team Providers Care Sheet Metal Worker Name Role Phone Lo Davis OKSANA Primary Care Provider [phone] Chance Navarro Unavailable + Viki Lama MD Unavailable Chance Navarro Unavailable [phone] Avelino Desai RN Unavailable [phone] Korina Cohen Unavailable Encounter Details Date Type Department Care Team (Late st Contact Info) Description 09/26/2024 Orders Only [facility] [address] [place], [place] [phone] Provider, MD Conrado Social History Tobacco Use [...] Description 12/30/2024 11:15 AM EST Office Visit [facility] MED [facility] PEDS [address] [place] [address] Lo Davis FNP [address] [place] [address] documented as of this encounter Procedures Procedure Name Priority Date/Time Associated Diagnosis Comments CT THORACIC SPINE WO CONTRAST Routine 09/25/2024 11:41 AM EDT XR KNEE 4+ VIEWS RIGHT Routine 09/25/2024 11:[address] LUMBAR SPINE WO CONTRAST Routine 09/25/2024 11:35 AM EDT XR CHEST 2 VIEWS Routine 09/25/2024 11:04 AM EDT documented in this encounter Results * CT Throacic Spine w/o Contrast (09/25/2024 11:41 AM EDT) Anatomical Region Laterality Modality Spine, T-spine Computed Tomogra phy us Historical Provider MD CABA CT PROCEDURES Final R esult * XR Knee 4+ Views Right (09/25/2024 11:38 AM EDT) Anatomical Region Laterality Modality Lower Extremities, Knee Right Radiogra phic Imaging us Historical Provider IMG XR PROCEDURES Final R esult * CT Lumbar Spine w/o Contrast (09/25/2024 11:35 AM EDT) Anatomical Region Laterality Modality Spine, L-spine Computed Tomogra phy us Historical Provider IMG CT PROCEDURES Final R esult * XR Chest 2 Views (09/25/2024 11:04 AM EDT) Anatomical Region Laterality Modality Chest Radiographic Naty ging us Historical Provider IMG XR PROCEDURES Final R esult documented in this encounter Visit Diagnoses Not on filedocumented in this encounter Additional Health Concerns Assessment Noted Time PHQ-9 Depression Total Score: 16 023 9:26 AM EDT documented as of this encounter Care Teams Sheet Metal Worker Relationship Specialty Start Date End Date Lo Davis FNP [address] [place] [address] PCP - General Family Medicine 04/29/21 [facility] [address] [phone] Urology 01/08/24 Viki Lama MD [address] [place] [address] Neurology 01/08/24 Chance Navarro PA [address] [phone] Urology 02/04/24 Avelino Desai RN [address] [place] [phone] Registered Nurse Family Medicine 09/26/24 10/10/24 Korina Cohen 09/26/24 10/10/24 [facility] 02/27/24 documented as of this encounter
--- OUTSIDE RECORDS SUMMARY | 2024-12-05 17:01 | XMS_ITS | Clinical Summary ---
Author Organization [employer] Address [address] [place] [address] Care Team Providers Care Residential Aide Name Role Phone Lo Davis BRANCH ASSOCIATE TELLER Primary Care Provider [phone] Chance Navarro Unavailable [phone] Viki Lama MD Unavailable Chance Navarro Unavailable [phone] Allergies Active Allergy Reactions Criticality Noted Date Comments Mushroom Extract Complex (Obsolete) Nausea And Vomiting 04/28/2021 Other reaction(s): Seizure, Syncope Medications gabapentin (Neurontin) 300 MG capsule take 1 capsule by oral route 3 times every day Active witch marissa-glycerin (Tucks) pad Use as needed for hemorrhoids (as directed on packing) Active EPINEPHrine (Epipen) 0.3 MG/0.3ML injection syringe inject 0.3 milliliter by intramuscular route once as needed for anaphylaxis. Go to hospital regardless of response to medication. Active traZODone (Desyrel) 100 MG tablet take 1 tablet by oral route nightly Active Diclofenac Sodium 1 % gel APPLY 2 GRAMS TO THE AFFECTED AREA ON SKIN 2 TO 3 TIMES DAILY NEEDED Active meloxicam (Mobic) 15 MG tablet Take 15 mg by mouth in the morning. Active nabumetone (Relafen) 500 MG tablet Take 500 mg by mouth if needed each day. 022 Active nystatin (Mycostatin) 357801 UNIT/GM powderIndications :Intertrigo apply by topical route 2 times every day to the affected area(s) as needed - below stomach folds 30 g 2 023 Active Menthol-Methyl Salicylate (Muscle Rub) 10-15 % creamIndications: Primary osteoarthritis of both knees Use 3-4 times daily on bilateral knees as needed for pain 85 g 2 023 Active ibuprofen 600 MG tabletIndications :Osteoarthritis of multiple joints, unspecified osteoarthritis type Take 1 tablet (600 mg) by mouth every 8 (eight) hours if needed for moderate pain. 90 tablet 2 023 Active lidocaine (Lidoderm) 5 % patchIndications: Pain APPLY 1 PATCH TOPICALLY TO AFFECTED AREAS EVERY DAY- KNEE(MAY WEAR UP TO 12 HOURS, MAY CUT PATCH TO FIT AREA) 30 patch 11 024 Active methocarbamol (Robaxin) 750 MG tablet Take 1 tablet (750 mg) by mouth every 6 (six) hours if needed for muscle spasms. 60 tablet 1 024 Active naproxen (Naprosyn) 500 MG tablet Take 1 tablet (500 mg) by mouth if needed in the morning and at bedtime for moderate pain. Take with food. 30 tablet 1 024 Active dicyclomine (Bentyl) 20 MG tablet Take 20 mg by mouth 4 times daily. 024 Active primidone (Mysoline) 50 MG tablet Take 50 mg by mouth Once per day. 024 Active clotrimazole (Lotrimin) 1 % creamIndications: Intertrigo apply by topical route 2 times every day to the affected and surrounding areas of skin in the morning and evening x 4 weeks 60 g 3 024 Active hydrocortisone 2.5 % creamIndications: Intertrigo Apply 2 times daily to affected area for up to 2 week as needed under breast tissue or affected area 60 g 3 024 Active senna-docusate sodium (Senokot-S) 8.6-50 MG tabletIndications :Constipation, unspecified constipation type Take 1-2 tablets by mouth if needed each day for constipation. 60 tablet 3 025 2025 Active estradiol (Estrace) 0.1 MG/GM vaginal cream 1g vaginally x 14d, then twice weekly thereafter 45 g 2 Active cholecalciferol (Vitamin D-3) 50 MCG (2000 UT) tabletIndications :Vitamin D deficiency TAKE 1 TABLET(2000 UNITS) BY MOUTH EVERY MORNING 90 tablet 3 Active amLODIPine (Norvasc) 5 MG tablet Take 5 mg by mouth Once per day. Active aspirin 81 MG EC tablet Take 81 mg by mouth Once per day. Active atorvastatin (Lipitor) 20 MG tablet Take 20 mg by mouth at bedtime. 025 2025 Active levothyroxine (Synthroid, Levoxyl) 137 MCG tabletIndications :Hypothyroidism, unspecified type take 1 tablet by oral route every day on an empty stomach 30-60 minutes before breakfast 90 tablet 3 Active albuterol (2.5 MG/3ML) 0.083% nebulizer solution Take 3 mL by nebulization every 6 (six) hours if needed for wheezing or shortness of breath. 75 mL 3 Active albuterol 108 (90 Base) MCG/ACT inhaler Inhale 2 puffs every 4 (four) hours if needed for wheezing or shortness of breath. 18 g 5 Active budesonide-formot viviane (Symbicort) 160-4.5 MCG/ACT inhaler Inhale 2 puffs in the morning and at bedtime. Rinse mouth with water after use to reduce aftertaste and incidence of candidiasis. Do not swallow. 1 each 3 Active montelukast (Singulair) 10 MG tabletIndications :Mild persistent asthma, unspecified whether complicated Take 1 tablet (10 mg) by mouth at bedtime. 90 tablet 1 Active topiramate (Topamax) 25 MG tablet Take 1 tablet (25 mg) by mouth Once per day. 90 tablet 1 Active famotidine (Heartburn Relief) 10 MG tablet TAKE 1 TABLET BY MOUTH TWICE DAILY NEEDED FOR REFLUX 180 tablet 3 Active Omeprazole 20 MG tablet delayed-release Take 1 tablet (20 mg) by mouth if needed each day (acid reflux.). 90 tablet 1 Active olmesartan (Benicar) 5 MG tablet Take 1 tablet (5 mg) by mouth Once per day. 90 tablet 1 025 2025 Active hydrocortisone (Anusol-HC) 2.5 % rectal cream Apply by topical route 2 times every day a thin layer to the affected area(s) - hemorrhoids. Use as needed. 28 g 3 Active Blood Pressure kit Use to check blood pressure once daily (1 hour after taking medication for blood pressure) and if symptomatic 1 kit Active hydrocortisone (Anusol-HC) 2.5 % rectal cream Apply by topical route 2 times every day a thin layer to the affected area(s) - hemorrhoids. Use as needed. 28 g 3 023 2024 Discontinued(R eorder (will not trigger notification to Pharmacy)) Blood Pressure kit Use to check blood pressure once daily (1 hour after taking medication for blood pressure) and if symptomatic 1 kit 025 2024 Discontinued(R eorder (will not trigger notification to Pharmacy)) Active Problems Problem Noted Date Diagnosed Date Neck pain 11/18/2024 Assessment & Plan (11/19/2024 8:17 AM EDT): Consider PT therapy if the condition persists. Orders: Creatine Kinase, Total; Future Bilateral headache 10/07/2024 Assessment & Plan (11/19/2024 8:17 AM EDT): She is no longer consuming topiramate for the headaches - Encouraged to use Topiramate for the headaches - APAP is effective in aborting her headaches Assessment & Plan (10/07/2024 10:30 AM EDT): - Sent in a refill for topiramate for headache management Primary hypertension 10/07/2024 Assessment & Plan (11/19/2024 8:17 AM EDT): New diagnosis 09/2024 In addition, reports elevated BP outside the clinic BP recheck- 150/90 Continue with Amlodipine 5mg daily New order of: olmesartan (Benicar) 5 MG tablet Return in 2 months for re-check of BP BP cuff with readings to be reviewed during this visit. Labs: electrolytes to be re-checked 2 weeks after starting the additional dose of the antihypertensive Assessment & Plan (10/07/2024 10:34 AM EDT): - Diagnosed 09/2024 during [facility] hospitalization - Blood pressure well controlled on current regimen - Continue amlodipine 5mg daily Constipation 02/22/2024 Assessment & Plan (11/19/2024 8:17 AM EDT): -- Started on senna-docusate 1-2 daily as needed for constipation. - Continue with the fiber and water intake Assessment & Plan (02/22/2024 2:31 PM EST): - Encouraged to continue with nutrition high in fiber and vegetable intake. Continue with adequate hydration - Plan: Start senna-docusate 1-2 daily as needed for constipation. Tremor of both hands 02/04/2024 Overview (02/04/2024): Followed by [facility] - Dr. Lama Consult Mar 2023 - started primidone tablet 50mg daily for tremor Gastroesophageal reflux disease 02/04/2024 Assessment & Plan (11/19/2024 8:17 AM EDT): Continues famotidine 10mg BID Omeprazole 20mg daily PRN Continue with the care of the specialist. Assessment & Plan (10/07/2024 10:33 AM EDT): Continues famotidine 10mg BID Omeprazole 20mg daily PRN Reviewed lifestyle interventions to decrease symptoms including avoid triggering foods (such as coffee, chocolate, fatty foods), eating 2-3 hours before lying down, and weight loss. Assessment & Plan (02/04/2024 9:06 PM EST): Continues famotidine 10mg BID Omeprazole 20mg daily PRN Reviewed lifestyle interventions to decrease symptoms including avoid triggering foods (such as coffee, chocolate, fatty foods), eating 2-3 hours before lying down, and weight loss. History of Helicobacter pylori infection 024 Assessment & Plan (02/04/2024 9:07 PM EST): - H. Pylori testing positive in July 2023, tx with quad therapy - DAVE pending Assessment & Plan (01/16/2024 8:55 PM EST): - H. Pylori testing positive in July 2023, tx with quad therapy - DAVE pending Microscopic hematuria 01/16/2024 Overview (01/16/2024): Following with [facility] Voiding dysfunction in setting of microscopic hematuria. Plan for further eval to include upper tract imaging, urine cytology, and office cystoscopy Memory difficulties 08/13/2023 Assessment & Plan (08/13/2023 5:24 PM EDT): Mini Cog Score: 5/5 on 08/11/23. However, given history from pt and family, will proceed with the following eval: Labs: Vit B12, RPR, TSH, BMP ordered 08/13/[address] order placed 08/13/23 ([facility]) Encouraged frequent stimulation and engagement w/ environment - movement as able, socialization, crosswords/puzzles Other hyperlipidemia 07/07/2023 Overview (10/07/2024): Lab Results Component Value Date CHOL 216 (H) 08/11/2023 CHOL 209 (H) 03/08/2023 TRIG 106 08/11/2023 TRIG 147 03/08/2023 HDL 48 08/11/2023 HDL 47 03/08/2023 LDLCHOLCAL 147 (H) 08/11/2023 LDLCHOLCAL 133 (H) 03/08/2023 -Atorvastatin 20mg at bedtime -Encouraged to cont with lifestyle interventions as able. Assessment & Plan (11/19/2024 8:17 AM EDT): Plans to check fasting lipid panel Continue on Atorvastatin 20 mg Check CK d/t myalgias Assessment & Plan (10/07/2024 10:35 AM EDT): Plan to check fasting lipid panel 1 week before next appt Intertrigo 10/26/2022 Assessment & Plan (08/13/2023 6:10 PM EDT): -Improves w/ tx, currently asymptomatic -Encourged to keep area clean and dry -Cont clotrimazole 1% and hydrocortisone 2.5% to be used PRN under breast folds and abdominal folds -Nystatin powder PRN abdominal folds Assessment & Plan (07/08/2023 10:42 AM EDT): -Improves w/ tx, currently asymptomatic -Encourged to keep area clean and dry -Cont clotrimazole 1% and hydrocortisone 2.5% to be used PRN under breast folds and abdominal folds -Nystatin powder PRN abdominal folds Assessment & Plan (10/26/2022 12:27 PM EDT): -Improves w/ tx -Encourged to keep area clean and dry -Refill of clotrimazole 1% and hydrocortisone 2.5% to be used PRN under breast folds -Nystatin powder PRN abdominal folds DVT (deep venous thrombosis) 07/20/2022 Lumbar degenerative disc disease 07/20/2022 Overview (10/07/2024): Multilevel lumbar degenerative disease noted on CT lumbar spine 09/2024 Routine health maintenance 04/10/2022 Overview (02/04/2024): Mammo: BIRADS 2 on 09/13/23 at [facility] Pap: 10/17/2018. NILM, HPV neg. Colonoscopy: pt report last approx 2020 at [facility], although no records able to be recovered. Referral to [facility] for screening colonoscopy sent 07/08/23. Cologuard requested and sent on 01/15/24. Referral re-sent to for colonoscopy 02/04/24 Optometry: wears glasses, [facility] Dental: UTD Last PE: 07/07/23 Assessment & Plan (11/19/2024 8:17 AM EDT): Encouraged to have the ordered labs performed, preferably fasting in 2 weeks. Ordered UA as pt was unable to void in office. Encouraged to contact GI for the colonoscopy- contact information provided Encouraged to contact PT to start the physical therapy sessions- outpatient for bilateral knee osteoarthritis- referral reference provided to [facility]: encouraged the administration of Hep B during the next visit Orders: Albumin, Random Urine W/Creatinine; Future Lipid Panel, Standard; Future Hemoglobin A1c; Future TSH with Reflex to Free T4; Future Comprehensive Metabolic Panel; Future Urinalysis, Complete, with Reflex to Culture; Future Bilateral carpal tunnel syndrome 03/31/2021 Generalized anxiety disorder 03/31/2021 Assessment & Plan (11/19/2024 8:17 AM EDT): Under the weather per daughter report Dr. Shante [place], Psychiatrist- every 6 months Looking for a therapist- encouraged to contact her insurance to further assist or reach out to the clinic for help if unsuccessful. Hypothyroidism 03/31/2021 Assessment & Plan (11/19/2024 8:17 AM EDT): - Continues with levothyroxine 137mcg daily - Check TSH No weight gain, Constipation- Continue with the senna-colace therapy; increased fiber intake and adequate hydration as tolerated. Assessment & Plan (10/07/2024 10:36 AM EDT): - Continues with levothyroxine 137mcg daily - Check TSH before next appt Assessment & Plan (07/08/2023 10:41 AM EDT): -Continues with levothyroxine 137mcg daily Lab Results Component Value Date TSH 2.23 03/08/2023 Assessment & Plan (03/12/2023 7:48 PM EST): -Continues with levothyroxine 137mcg daily -Due for repeat TSH, ordered Assessment & Plan (10/26/2022 12:44 PM EDT): -Continues with levothyroxine 137mcg daily -Due for repeat TSH at subsequent appt Major depressive disorder 03/31/2021 Mild persistent asthma 03/31/2021 Assessment & Plan (11/19/2024 8:17 AM EDT): Montelukast no longer used? Encouraged to resume the use of the medication therapy. - Continue with Symbicort - Albuterol- PRN, no more than 2 times per week usage of this therapy, if so, call the office. Assessment & Plan (10/07/2024 10:32 AM EDT): - Asthma is well controlled with current inhalers; montelukast used only as needed for severe symptoms. - Sent in refills for Symbicort, albuterol, and montelukast to pharmacy. Primary osteoarthritis of both knees 03/31/2021 Assessment & Plan (11/19/2024 8:17 AM EDT): - Referral to physical therapy was placed during her previous; however, she did not attend- would appreciate out patient PT Continues with Tylenol. Assessment & Plan (10/07/2024 10:34 AM EDT): - Patient to follow up with pain management provider (Dr. Moran) next week - Risks and side effects: Discussed increased risk of bleeding when using NSAIDs with aspirin; recommended Tylenol as alternative - Referral to physical therapy placed Assessment & Plan (02/22/2024 2:32 PM EST): Continues with pain in bilat knees with previous hx of OA Reports pain limiting ADLs/iADLs, difficulty navigating stairs Previous treatment options include steroid injections and PO/IM medications Specialists: [facility] (Dr. Nunez) Reports that TKA wasrecommended, although pt declines interest in surgery. Will continue with symptomatic management at this time. Assessment & Plan (03/12/2023 7:53 PM EST): Continues with pain in bilat knees with previous hx of OA Pain limiting ADLs/iADLs Previous treatment options include steroid injections and PO/IM medications Specialists: [facility] (Dr. Nunez) Reports that TKA wasrecommended, although pt declines interest in surgery. Will continue with symptomatic management at this time. Assessment & Plan (10/26/2022 12:45 PM EDT): Continues with pain in bilat knees with previous hx of OA Pain limiting ADLs/iADLs Previous treatment options include steroid injections and PO/IM medications Specialists: [facility] (Dr. Nunez) Will request notes from [facility] Reports that TKA was requested, although pt declines interest in surgery. Will continue with symptomatic management at this time. 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 Requesting to switch to [facility] or [place] due to convenience Referral to Urology at [facility] sent 07/08/23 Previous med trial: oxybutynin Increase Mirabegron to 50mg daily, reviewed med use and SE Assessment & Plan (07/08/2023 10:38 AM EDT): Previously following with [facility]. Requesting to switch to [facility] or [place] due to convenience Referral to UroGYN re-sent on 07/08/23 Pt previously tx with Mirabegron with better effect than oxybutynin and no SE. Start Mirabegron 25mg daily, reviewed med use and SE Assessment & Plan (10/26/2022 12:40 PM EDT): Previously following with [facility]/U[facility]. Plans to follow up with their office Daughter will call [facility] if in need of updated referral Unsteady gait 11/10/2019 Arthritis of hand, left 06/08/2016 Overview (07/20/2022): Carpal arthritis per [facility] Cubital tunnel syndrome on right 06/08/2016 Overview (07/20/2022): F/u [facility], EMG ordered 06/02/16 via [facility] Insomnia secondary to depression with anxiety Overview (07/20/2022): Psych f/u Dr. Bishop Fatty infiltration of liver 01/20/2015 Overview (02/04/2024): Lab Results Component Value Date AST 29 08/11/2023 ALT 40 (H) 08/11/2023 TOTPROTEIN 7.2 08/11/2023 ALB 4.0 08/11/2023 ALP 80 08/11/2023 TOTALBILIRUB 0.6 08/11/2023 Assessment & Plan (02/04/2024 9:07 PM EST): Repeat hepatic function panel ordered Dietary iron deficiency 11/08/2014 Prediabetes 11/08/2014 Assessment & Plan (11/19/2024 8:17 AM EDT): Lab Results Component Value Date HGBA1C 5.8 08/11/2023 -Cont lifestyle interventions Orders: POCT glucose manually resulted Assessment & Plan (03/12/2023 7:48 PM EST): Lab Results Component Value Date HGBA1C 6.0 03/08/2023 -Cont lifestyle interventions Vitamin D deficiency 08/04/2014 Assessment & Plan (11/19/2024 8:17 AM EDT): -Continue with Vit D 2000 units daily Vitamin D 25-OH Total 51.4 Re-check Vit D lab work Orders: Vitamin D, 25-Hydroxy, Total, Immunoassay; Future Assessment & Plan (07/08/2023 10:41 AM EDT): -Continues with Vit D 2000 units daily -Recheck Vit D lab work Hemorrhoids, external, thrombosed 07/01/2013 Assessment & Plan (11/19/2024 8:17 AM EDT): Continue with hydrocortisone rectal cream Encouraged to have the colonoscopy performed Resolved Problems Problem Noted Date Diagnosed Date Resolved Date Costochondritis 07/20/2022 10/26/2022 Activity of daily living alteration 12/30/2021 03/12/2023 Acute parotitis 07/14/2018 10/26/2022 Overview (07/20/2022): 07/12/18 - seen at [facility] ED for left sided neck swelling x [address] Face w: heterogeneous enhancement of the left parotid gland with stranding and tiny intraparenchymal enhancing lesions. Findings suggestive of parotitis likely infectious or inflammatory in etiology. Recommend clinical correlation. Mildly enlarged bilateral cervical LAD likely reactive. lymphoma not entirely excluded. Recommend f/u to complete resolution and correlate clinically. surgery specialist consulted who recommend outpt tx with dicloxacillin QID x 10 days and outpt f/u with maxillofacial surgeon. Call Dr. Alegria's office [place]. Closed fracture of right wrist 02/22/2018 10/26/2022 Right kidney stone 01/03/2017 Overview (07/20/2022): CT 12/02/16 at [facility] = 1.1 mm right kidney stone Seen 01/23/17 by [facility]. Advised to increase fluids, that flank pain is not caused by kidney stones. Tinea corporis 06/26/2015 10/26/2022 Lymphedema of both lower extremities 01/20/2015 07/08/2023 Urinary incontinence in female 01/20/2015 07/08/2023 Overview (07/20/2022): 03/15/18 - [facility] U[facility]yn: Plan to do UDA, will F/U with Dr. Dong after. Elevated liver function tests 11/08/2014 12/06/2022 Hypomagnesemia 11/08/2014 12/06/2022 Bilateral low back pain without sciatica 11/07/2014 10/26/2022 Arthritis of both knees 07/30/201406/14 Overview (07/20/2022): F/u Rheum at [facility]. X-rays both knee's = mild medial compartment joint space narrowing. Morbid obesity (CMS/HCC) 07/30/2014 Chronic leg pain 10/07/2013 10/26/2022 Contact dermatitis and eczema 11/20/2012 10/26/2022 Encounters Date Type Department Care Team Description 11/22/2024 Telephone [facility] [address] [place] [address] Lo Davis FNP Transition Of Care (Tcm) 11/19/2024 Orders Only [facility] [address] [place] [address] Lo Davis FNP 11/18/2024 10:30 AM EDT Office Visit [facility] [address] [place] [address] Lo Davis FNP Primary hypertension (Primary Dx); Routine health maintenance; Prediabetes; Encounter for immunization; Encounter for vaccination; Dietary counseling; Exercise counseling; Other hyperlipidemia; Other specified hypothyroidism; Vitamin D deficiency; Hemorrhoids, external, thrombosed; Gastroesophageal reflux disease, unspecified whether esophagitis present; Other constipation; OAB (overactive bladder); Generalized anxiety disorder; Primary osteoarthritis of both knees; Bilateral headache; Mild persistent asthma, unspecified whether complicated; Neck pain 11/18/2024 Telephone [facility] [address] [place] [address] Lo Davis FNP Appointment Request 11/18/2024 Travel 11/15/2024 Telephone [facility] [address] [place] [address] Lo Davis FNP Chart Prep 11/11/2024 Patient Outreach [address] [address] Lo Davis FNP Pre-visit Planning (Pre visit planning LVM ) 10/10/2024 Patient Outreach [address] [address] Lo Davis FNP Care Coordination (CM/CHW outreach) 10/07/2024 9:30 AM EDT Office Visit [facility] [address] [place] [address] Lo Davis FNP Primary osteoarthritis of both knees (Primary Dx); Hypothyroidism, unspecified type; Mild persistent asthma, unspecified whether complicated; Compression fracture of lumbar vertebra with routine healing, unspecified lumbar vertebral level, subsequent encounter; Prediabetes; Primary hypertension; Other hyperlipidemia; Bilateral headache; Degeneration of intervertebral disc of lumbar region with discogenic back pain; Gastroesophageal reflux disease, unspecified whether esophagitis present 10/07/2024 Travel 09/30/2024 Patient Outreach [address] [address] Lo Davis FNP Care Coordination (CM/CHW outreach) 09/30/2024 Patient Outreach [address] [phone] Lo Davis FNP Transition Of Care (Tcm) (HDF- Scheduled ) 09/30/2024 Patient Outreach [address] [address] Lo Davis FNP 09/27/2024 Orders Only [facility] [address] [place] [address] Conrado Boudreaux MD 09/26/2024 Orders Only [facility] [address] [place] [address] Conrado Boudreaux MD 09/26/2024 Patient Outreach [address] [address] Lo Davis FNP Care Coordination (CM/CHW outreach) 09/26/2024 Patient Outreach [address] [address] Lo Davis FNP Care Coordination (CHW chart review) 09/26/2024 Patient Outreach [address] [address] Lo Davis FNP Care Management (C3CM- chart review) 09/26/2024 Patient Outreach [address] [address] Lo Davis FNP from Last 3 Months Immunizations Immunization Administration Dates Next Due Influenza Injectable Quadriv alant Preservative Free IIV4 MDCK 12/14/2022,11/29/2016 Influenza injectable quadriv alent preservative free 10/21/2021,10/29/2020,11/08/2019,03/08 Influenza, IIV3, injectable 12/14/2022,0 10/21/2021,10/29/2020,11/07,03/08/2019,11/29/2016,10/14/2016 ,11/03/2015,01/22/2014 Influenza, seasonal, injecta ble, preservative free 11/18/2024,11/03/2015,11/20/2012 PPD Test 08/26/2015 Pfizer Covid-19 Vaccine 12+ 11/18/2024,0 04/05/2021,06/30/2020,06/09 Pfizer Covid-19 Vaccine 12+ kalpana-sucrose ([place] Cap) 04/05/2021 Pneumococcal Conjugate PCV 20 07/21/2022 Pneumococcal Polysaccharide PPSV23 03/08/2019 Tdap 07/16/2018 Zoster, Recombinant 03/16/2020,10/11/2019 Family History Medical History Relation Name Comments Alzheimer's disease Brother Breast cancer Cousin paternal cousi n Alzheimer's disease Father Breast cancer Sister lives in [facility] Relation Name Status Comments Brother Cousin Father Sister Social History Tobacco Use Types Packs/Day Years Used Date Smoking Tobacco: Never Passive Smoke Exposure: Never Smokeless Tobacco: Never Tobacco Cessation:Counseling Given: Not Answered Alcohol Use Standard Drinks/Week Comments Never 0 (1 standard drink = 0.6 oz pur e alcohol) Depression Answer Date Recorded Patient Health Questionnaire-9 Score 3 10/07/2024 Patient Health Questionnaire-9 Score 3 10/07/2024 Last PHQ-9: Questionnaire Data Not on file 0 10/07/2024 Housing Stability Answer Date Recorded What is [...] Answer Date Recorded Patient Health Questionnaire-2 Score 0 10/07/2024 Internet Access Answer Date Recorded Internet Access Q1 Yes 09/30/2024 Internet Access Q2 Not on file 09/30/2024 Comments No Sex and Gender Information Value Date Recorded Sex Assigned at Female 12/13/2021 10:25 AM EDT Legal Sex Female 10:25 AM EDT Gender Identity Female 12/13/2021 10:25 AM EDT Sexual Orientation Straight 08/08/2023 12 :26 PM EDT Last Filed Vital Signs Vital Sign Reading Time Taken Comments Blood Pressure 140/78 11/18/2024 10:57 AM EDT Pulse 90 11/18/2024 10:57 AM EDT Temperature 36.7 C (98.1 F) 11/18/2024 10:57 AM EDT Respiratory Rate 20 11/18/2024 10:57 AM EDT Oxygen Saturation 98% 11/18/2024 10:57 AM EDT Inhaled Oxygen Concentration - - Weight 76.2 kg (168 lb) 11/18/2024 10:57 AM EDT Height 149.9 cm (4' 11 ) 11/18/2024 10:57 AM EDT Body Mass Index 33.93 11/18/2024 10:57 AM EDT Plan of Treatment Upcoming Encounters Date Type Department Care Team ([facility] st Contact Info) Description 12/30/2024 11:15 AM EST Office Visit [facility] [address] [place] [address] Lo Davis, BRANCH ASSOCIATE TELLER [address] [place], [place] [phone] Health Maintenance Due Date Last Done Comments CT Colonography 1966 Colonoscopy 1966 Colorectal Cancer Screening 1966 FIT DNA/Cologuard 1966 FIT 1966 FOBT 1966 Sigmoidoscopy 1966 Alcohol/Substance Use Screening 1978 Hepatitis B Vaccines (1 of 3 - 19+ 3-dose series) 1985 Cervical Cancer Screening 10/18/2023 HPV/Cotest 10/18/2023 10/17/2018 Pap Smear 10/18/2023 10/17/2018 Mammogram 09/12/2025 2023 SDOH Screening 09/30/2025 09/30/2024 Depression Screening 10/07/2025 10/07/2024, 10/08/19 25 Disability Screening 10/07/2025 10/07/2024 Tobacco Screening 10/07/2025 10/07/2024 Diabetes: Hemoglobin A1C 12/05/2025 025, 09/25/2024, 08/11/2023, Additional history exists DTaP/Tdap/Td Vaccines (2 - Td or Tdap) 07/16/2028 07/16/2018 Lipid Panel 12/05/2029 12/05/2024, 07/15, 03/08/2023, Additional history exists RSV Patients and Patients Aged 60 years or older (1 - 1-dose 75+ series) 2041 Zoster Vaccines Completed 03/16/2020, 10/11/2019 Hepatitis C Screening Completed 04/28/2021 Pneumococcal Vaccine: 50+ Years Completed 07/21/2022, 03/08/2019 HIV Screening Completed 08/11/2023, 04/13, 07/16/2018 COVID-19 Vaccine Completed 11/18/2024, , 04/05/2021, Additional history exists Influenza Vaccine Completed 11/18/2024, , 12/14/2022, Additional history exists HIB Vaccines Aged Out No longer eligi ble based on patient's age to complete this topic HPV Vaccines Aged Out No longer eligi ble based on patient's age to complete this topic Hepatitis A Vaccines Discontinued IPV Vaccines Aged Out No longer eligi ble based on patient's age to complete this topic Meningococcal B Vaccine Aged Out No l onger eligible based on patient's age to complete this topic Meningococcal Vaccine Aged Out No rita jordin eligible based on patient's age to complete this topic RSV under 20 months Aged Out No longe r eligible based on patient's age to complete this topic Rotavirus Vaccines Aged Out No longer eligible based on patient's age to complete this topic Procedures Procedure Name Priority Date/Time Associated Diagnosis Comments URINALYSIS, COMPLETE, WITH REFLEX TO CULTURE Routine 12/05/2024 1:33 PM EDT Routine health maintenance ALBUMIN, RANDOM URINE W/CREATININE Routine 12/05/2024 1:33 PM EDT Routine health maintenance HEMOGLOBIN A1C Routine 12/05/2024 1:27 PM EDT Routine health maintenance VITAMIN D,25-OH,TOTAL,IA Routine 12/05/2024 1:26 PM EDT Vitamin D deficiency COMPREHENSIVE METABOLIC PANEL Routine 12/05/2024 1:26 PM EDT Routine health maintenance TSH W/REFLEX TO FT4 Routine 12/05/2024 1 :26 PM EDT Routine health maintenance LIPID PANEL, STANDARD Routine 12/05/2024 1:26 PM EDT Routine health maintenance CREATINE KINASE, TOTAL Routine 12/05/2024 1:26 PM EDT Neck pain POCT GLUCOSE Routine 11/18/2024 10:[address] THORACIC SPINE WO CONTRAST Routine 09/25/2024 11:41 AM EDT XR KNEE 4+ VIEWS RIGHT Routine 09/25/2024 11:[address] LUMBAR SPINE WO CONTRAST Routine 09/25/2024 11:35 AM EDT XR CHEST 2 VIEWS Routine 09/25/2024 11:0 4 AM EDT CTA HEAD NECK W AND WO CONTRAST Routine 09/25/2024 10:07 AM EDT BI MAMMOGRAM SCREENING TOMOSYNTHESIS BILATERAL Routine 2023 Screening mammogram for breast cancer HIV 1/2 ANTIGEN/ANTIBODY, FOURTH GENERATION W/RFL Routine 08/11/2023 9:06 AM EDT Memory difficulties ZZZ HISTORICAL HEPATITIS C AB W/REFL TO HCV RNA, QN, PCR Routine 04/28/2021 4:51 PM EDT HM PAP/HPV Routine 10/17/2018 from Last 3 Months or Most Recently Relevant to Health Maintenance Results * (ABNORMAL) Urinalysis, Complete, with Reflex to Culture (12/05/2024 1:33 PM EDT) Color Urine Yellow [facility] Appearance Urine Clear [facility] PH 5.0 5.0 - 9.0 [facility] Glucose Urine UA Negative Negative mg/dL [facility] Urine Blood Trace(A) Negative [facility] Specific [place] - Urine 1.025 1.005 - 1.025 [facility] Urine Protein Trace Neg-Trace mg/dL [facility] Urine Ketones Negative Negative mg/dL [facility] Nitrite Urine Negative Negative [facility] Leukocyte Esterase Urine Trace(A) Negative [facility] RBC Urine 0-2 0 - 2 /HPF [facility] Urine WBC 0-5 0 - 5 /HPF [facility] Urine Squamous Epithelial Cell 6-10 0 - 2 /HPF [facility] Urine Bacteria Trace None Seen [facility] Hyaline Casts, Urine 3-5 0 - 2 /LPF [facility] Urine 12/05/2024 1:33 PM EDT 12/05/2024 2:07 PM EDT Narrative [facility] - 12/05/2024 2:28 PM EDT [id number], Clean Catch us Lo Davis BRANCH ASSOCIATE TELLER LAB URINE ORDERABLES Final Res ult Performing Organization Address [facility] de Phone Number [facility] [address] [place] [phone] * (ABNORMAL) Albumin, Random Urine W/Creatinine (12/05/2024 1:33 PM EDT) Creatinine, Urine 155.73 mg/dL [facility] Microalbumin Urine 69.0 mg/L [facility] Microalbum Creatinine Ratio Ur 44.3(H) <30 ug/mg cr [facility] Comment:Albumin/Creatinine R atio Reference Ranges: Normal: < 30 ug/mg creatinine Microalbuminuria: 30 - 300 ug/mg creatinineClinical Albuminuria: > 300 ug/mg creatinine Urine 12/05/2024 1:33 PM EDT 12/05/2024 2:07 PM EDT us Lo Davis BRANCH ASSOCIATE TELLER LAB URINE ORDERABLES Final Res ult Performing Organization Address [facility]/ZIP Co de Phone Number [facility] [address] [place] [phone] * Hemoglobin A1c (12/05/2024 1:27 PM EDT) Hemoglobin A1c 5.7 <6.0 % [facility] Comment:Hemoglobin A1C Refer ence Range Adults: 4.8 - 6.0 % Non diabetic: < 6.0 % Goal: < 7.0 %Additional Action Suggested: > 8.0 %Note: Hemoglobin A1c results are invalid for patients with abnormal amounts of HbF. Blood transfusions may impact the HbA1c concentration in the patient sample. Estimated Average Glucose 117 mg/dL [facility] Comment:eAG = Estimated ave rage glucose which is %A1C expressed asaverage glucose, using the formula of the P3A-IuahazwFjrvsyw Glucose study (ADAG), Diabetes Care, Vol.31,#8,2007 Blood Venous blood specimen / Unknown 12/05/2024 1:27 PM EDT 12/05/2024 2:34 PM EDT Lo Davis [facility] LAB BLOOD ORDERABLES Final Res ult [facility] [address] [place] [phone] * (ABNORMAL) Vitamin D, 25-Hydroxy, Total, Immunoassay (12/05/2024 1:26 PM EDT) Vitamin D 25-OH Total 28.8(L) >30 ng/mL [facility] Comment: Health Based Reference Values*< 20 ng/mL [id number] ng/mL Insufficient> 30 ng/mL Sufficient*Verona LANDON. N Engl J Med. 2007;357:266-280There is no well-established upper level of normal vitamin Dlevels. Some laboratories use 50 ng/mL as an upper limit ofnormal. However, toxicity is patient-dependent and may occurat any level. Careful correlation with the patient'spresentation is necessary and, if there is concern forvitamin D toxicity, treatment should be consideredirrespective of the serum level.Care must be taken in interpreting Vitamin D results fromdifferent laboratories and methodologies. Published datademonstrated that results from patients undergoinghemodialysis may show a negative bias when tested withvarious automated 25-OH vitamin D assays when compared toLC-MS/MS.When testing samples from patients whose predominant form ofVitamin D is Vitamin D2, such as patients receiving VitaminD2 supplementation, results that are subtherapeutic shouldbe confirmed with another method such as LC-MS/MS. Blood Venous blood specimen / Unknown 12/05/2024 1:26 PM EDT 12/05/2024 2:25 PM EDT Lo Davis [facility] LAB BLOOD ORDERABLES Final Res ult Performing Organization Address [facility] de Phone Number [facility] [address] [place] [phone] * (ABNORMAL) TSH with Reflex to Free T4 (12/05/2024 1:26 PM EDT) TSH reflex Free T4 5.09(H) 0.32 - 4.0 uIU/mL [facility] Blood 12/05/2024 1:26 PM EDT 12/05/2024 2:25 PM EDT Lo Davis [facility] LAB BLOOD ORDERABLES Final Res ult Performing Organization Address [facility] Phone Number [facility] [address] [place] [phone] * Creatine Kinase, Total (12/05/2024 1:26 PM EDT) Creatine Kinase Total 69 26 - 140 U/L [facility] Blood Venous blood specimen / Unknown 12/05/2024 1:26 PM EDT 12/05/2024 2:25 PM EDT Lo Davis [facility] LAB BLOOD ORDERABLES Final Res ult Performing Organization Address [facility] de Phone Number [facility] [address] [place] [phone] * (ABNORMAL) Lipid Panel, Standard (12/05/2024 1:26 PM EDT) Triglycerides 143 <150 mg/dL [facility] Comment:Desirable Triglyceri de: less than 150 mg/dLBorderline High Triglyceride 150-199 mg/dLHigh Triglyceride: 200-499 mg/dLVery High Triglyceride: greater than or equal to 5OO mg/dL Cholesterol 214(H) <200 mg/dL [facility] Comment:Desirable Cholestero l: less than 200 mg/dLBorderline High Cholesterol: 200-239 mg/dLHigh Cholesterol: greater than 239 mg/dL LDL Cholesterol Calculated 134(H) <100 mg/dL [facility] Comment:Desirable LDL: less than 100 mg/dLNear Optimal/Above Optimal LDL: 110- 129 mg/dLBorderline High LDL: 130-159 mg/dLHigh LDL: 160-189 mg/dLVery High LDL: greater than or equal to 190 mg/dL HDL Cholesterol 52 >40 mg/dL [facility] Comment:Desirable HDL: great er than 40 mg/dL Note: This HDL assay may give artificially low results in patients with liver disease. Blood Venous blood specimen / Unknown 12/05/2024 1:26 PM EDT 12/05/2024 2:25 PM EDT us Lo Davis BRANCH ASSOCIATE TELLER LAB BLOOD ORDERABLES Final Res ult [facility] [address] [place] [phone] * (ABNORMAL) Comprehensive Metabolic Panel (12/05/2024 1:26 PM EDT) Sodium 142 135 - 145 mmol/L [facility] Potassium 3.8 3.3 - 5.1 mmol/L [facility] Chloride 111(H) 96 - 108 mmol/L [facility] Carbon Dioxide 21(L) 22 - 29 mmol/L [facility] Anion Gap 14 12 - 20 [facility] Urea Nitrogen (BUN) 11 9 - 16 mg/dL [facility] Creatinine, Serum 0.77 0.5 - 1.4 mg/dL [facility] Estimated Glomerular Filt Rate >60 [facility] Comment:Chronic Kidney Disea se: Estimated GFR < 60 mL/min/1.73k5Hezqmq Kidney Disease: Estimated GFR < 15 mL/min/1.73m2 Glucose 158(H) 60 - 115 mg/dL [facility] Calcium 8.8 8.4 - 10.2 mg/dL [facility] Bilirubin, Total 0.5 0.0 - 1.0 mg/dL [facility] Aspartate Amino Transferase 31 5 - 31 U/L [facility] Alanine Aminotransferase 40(H) 0 - 31 U/L [facility] Total Protein 7.0 6.5 - 8.0 g/dL [facility] Albumin Level 4.2 3.5 - 5.0 g/dL [facility] Alkaline Phosphatase 96 39 - 117 U/L [facility] Blood Venous blood specimen / Unknown 12/05/2024 1:26 PM EDT 12/05/2024 2:25 PM EDT us Lo GANDHI LAB BLOOD ORDERABLES Final Res ult [facility] [address] [place] [phone] * POCT glucose manually resulted (11/18/2024 10:58 AM EDT) Glucose Blood, POC 161 60 - 200 mg/dL [employer] Lot # Comment:[id number] Lot# Expiration Date Comment:02/01/2025 Blood Capillary blood specimen / Unknown 11/18/2024 10:58 AM EDT us Lo Davis BRANCH ASSOCIATE TELLER POINT OF CARE TEST ENTER/EDIT ORDERABLES Final Result * CT Throacic Spine w/o Contrast (09/25/2024 11:41 AM EDT) Anatomical Region Laterality Modality Spine, T-spine Computed Tomogra phy Historical Provider MD IMG CT PROCEDURES Final R esult * XR Knee 4+ Views Right (09/25/2024 11:38 AM EDT) Anatomical Region Laterality Modality Lower Extremities, Knee Right Radiogra phic Imaging Historical Provider IMG XR PROCEDURES Final R esult * CT Lumbar Spine w/o Contrast (09/25/2024 11:35 AM EDT) Anatomical Region Laterality Modality Spine, L-spine Computed Tomogra phy Result [facility] Historical Provider MD IMG CT PROCEDURES Final R esult * XR Chest 2 Views (09/25/2024 11:04 AM EDT) Anatomical Region Laterality Modality Chest Radiographic Naty ging Result [facility] Historical Provider IMG XR PROCEDURES Final R esult * CTA Head Neck w/ and w/o Contrast (09/25/2024 10:07 AM EDT) Anatomical Region Laterality Modality Head, Neck Computed Tomogra phy Result [facility] Provider IMG CT PROCEDURES Final R esult * BI Mammogram Screening Tomosynthesis Bilateral (2023) Anatomical Region Laterality Modality Breast Bilateral Mammography Result [facility] Lo Davis BRANCH ASSOCIATE TELLER IMG BI PROCEDURES Final Result * HIV-1/2 Antigen and Antibodies, Fourth Generation, with Reflexes (08/11/2023 9:06 AM EDT) Pathologist [facility] HIV AB/AG Nonreactive Nonreactive [facility] Comment:HIV-1 p24 Ag and/or HIV-1/HIV-2 Ab not detected.A test result that is nonreactive does not exclude thepossibility of exposure to or infection with HIV-1 and/orHIV-2. Nonreactive results in this assay for individualswith prior exposure to HIV-1 and/or HIV-2 may be due toantigen and antibody levels that are below the limit ofdetection of this assay.The [employer] HIV Ag/Ab Combo assay result andsupplemental assay results should be interpreted inconjunction with the patient's clinical presentation,history and other laboratory results. If the results areinconsistent with clinical evidence, additional testing issuggested to confirm the result. Blood Venous blood specimen / Unknown 08/11/2023 9:06 AM EDT 08/11/2023 2:15 PM EDT Lo AGUIRREP LAB BLOOD ORDERABLES Final Res ult Performing Organization Address [facility] Co de Phone Number [facility] [address] [place] [phone] * HEPATITIS C AB W/REFL TO HCV RNA, QN, PCR (04/28/2021 4:51 PM EDT) HEPATITIS C ANTIBODY NON-REACT WILL NON-REACT WILL [facility] INDEX 0.03 <1.00 [facility] Comment: HCV antibody was non-reactive. There is no laboratory evidence of HCV infection. In most cases, no further action is required. However, if recent HCV exposure is suspected, a test for HCV RNA (test code 33870) is suggested. For additional information please refer to http://education.[employer]/faq/BEK65n4 (This link is being provided for informational/ educational purposes only.) 04/28/2021 4:51 PM EDT Lo GANDHI HISTORICAL/NON ORDERABLE LABS Final Result Performing Organization Address [facility] Co de Phone Number [facility] [address] [place] [address], * Pap Smear (10/17/2018) Pap Negative for intraephithelial lesion or malignancy Negative for intraephithelial lesion or malignancy, Other HPV Not Detected Undetected, Indeterminate, Quantitative, Not Detected Historical Provider MD HEALTH MAINTENANCE Final Result from Last 3 Months or Most Recently Relevant to Health Maintenance Insurance [facility] C3 Care Teams Residential Aide Relationship Specialty Start Date End Date Lo Davis FNP [address] [place] [phone] PCP - General Family Medicine 04/29/21 Chance Navarro PA [facility] [address] [phone] Urology 01/08/24 Viki Lama MD [address] [place] [address] [place] [phone] Neurology 01/08/24 Chance Navarro PA 100 Serjio Rosario [address] [phone] Urology 02/04/24 [facility] 02/27/24
--- OUTSIDE RECORDS SUMMARY | 2024-12-05 17:01 | XMS_ITS | Patient Health Record ---
Author Organization [facility] Address [address] [place] [address] Care Team Providers Care Nurse Receptionist Name Role Phone DAMIAN WILLOUGHBY MD Primary Care Provider Unavaila Cecil Chapman Jr Unavailable [phone] Reason For Referral Referring Provider First Name DAMIAN Referring Provider Last Name CASE Referred Organization [facility] Referred Provider Cecil Stahl Jr Referred Address [address] [place] [address],[facility] [address],[place], [place],[phone], Referred Provider Specialty Gastroentero logy Referral Priority Routine Plan Of Treatment Next Appt Details Provider Name:Cecil benavidez Jr, 12/09/2024 09:40:00 AM, [address], [address], [place], [phone], Insurance Providers Payer Name Payer Address Payer Phone Subscriber Number Group Number Insured Name Patient Relationship to Insured Coverage Start Date Coverage End Date MEDICAID OF [facility] [address] [place] [id number] NIXON SILVA Self - patient is the insured
[2024-12-05 19:00] LABS: Free T4 (Free Thyroxine) 0.88 ng/dL (0.71-1.85)
== END 2024-12-05 13:27 | disposition home or self-care (01) ==
LOC: HO.CHCLDS 13:26
PROVIDERS: Visit Provider Registered Nurse
DX: Z00.00 Encounter for general adult medical examination without abnormal findings (principal); M54.2 Cervicalgia; E55.9 Vitamin D deficiency, unspecified
CPT/HCPCS: 36415; 80053; 80061; 81001; 82043; 82306; 82550; 82570; 83036; 84439; 84443